=== PATIENT | male | born 1950 | race Caucasian/White ===

== ENCOUNTER 2023-09-19 14:00 | Outpatient (RCR) | payer MEDICARE, SELFPAY | END 2023-09-19 14:45 | disposition home or self-care (01) | LOC: HO.PTCHIC 14:00 | PROVIDERS: PCP Family Medicine; Visit Provider Nurse Practitioner Family | DX: M79.604 Pain in right leg (principal) | CPT/HCPCS: 97110; 97112; 97140; 97162; 97530 ==

== ENCOUNTER 2025-08-06 13:38 | Outpatient (AMB) | payer MEDICAID, SELFPAY ==
--- NOTE | 2025-08-06 13:41 | MHC.OFFWIV ---
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 - The patient recently visited an bar assistant and received new hearing aids. - The bar assistant noted the presence of ear wax, particularly in the right ear, which was not cleaned out during the visit. - He was told to come and have his ears cleaned. - He denies any pain, SEGOVIA, dizziness, or cold symptoms. Physical Exam General: Cooperative, healthy appearing, comfortable, no acute distress and well developed Head: Normal to inspection Ears: External ears normal bilaterally. No tragus or mastoid tenderness noted. Cerumen noted in the canal, more in the right ear and a little in the left ear. TM's not visualized. Face and sinus: Normal facial exam. No TTP of the sinuses. Neck: Normal visual inspection. Full ROM. No lymphadenopathy noted. Respiratory: Normal respiratory effort and able to speak in complete sentences. Clear to auscultation bilaterally. No w/r/r noted. Cardiac: RRR, no m/r/g noted. Normal S1 and S2 noted. Skin: No rashes or lesions noted Neuro: Patient oriented x3 Patient was informed and verbally consented to the use of an ambient scribe for clinic note documentation during this visit. Review of Systems Const All systems reviewed & are unremarkable except as noted in HPI and below Physical Exam Vital Signs: Last Vital Signs Temp 98.0 F 08/06/25 13:42 Pulse 67 08/06/25 13:42 Resp 16 08/06/25 13:42 BP 118/72 08/06/25 13:42 Pulse Ox 96 08/06/25 13:42 Oxygen Delivery Method Room Air 08/06/25 13:42 Office Procedures Cerumen Removal From which ear canal was the cerumen removed: bilateral Removal: irrigation and otoscope w/curette Notes: patient tolerated procedure well, no complications and ear canal clear [id number] Irrigation/Lavage Assessment & Plan Assessment & Plan (1) Impacted cerumen of both ears: Code(s): H61.23 - Impacted cerumen, bilateral Plan Most likely cerumen impaction Plan - The plan is to perform ear irrigation to remove the impacted cerumen Orders: Orders AMB Cerumen Removal Today H61.23 - Impacted cerumen, bilateral Coding Level of Care Code Est Pt Level 3 (96656) Diagnoses Impacted cerumen of both ears H61.23 CPT Codes Office Procedure - CPT: 00403-Upc Irrigation/Lavage ([id number])
[2025-08-06 13:42] VITALS: BP 118/72; PULSE 67; RESP 16; TEMP 36.7; O2SAT 96
--- OUTSIDE RECORDS SUMMARY | 2025-08-06 16:46 | XMS_ITS | Encounter Summary ---
Author Organization [facility] Address [address] [place] [address] Phone Care Team Providers Care Warehouse Freight Handler Name Role Phone Sandra Tee MD Unavailable [phone] Mehdi Sierra MD Primary Care Provider [phone] Eusebio Chase MD Primary Care Provider [phone] Eusebio Chase MD Primary Care Provider [phone] Eusebio Chase MD Unavailable [phone] Encounter Details Date Type Department Care Team (Latest Contact Info) Description 07/29/2022 Transcribe Orders Virtual Department [address] [place] [address] Karl Nava MD [address] [place] [address] [email or web address] History of Rush fundoplication (Primary Dx) Social History Tobacco Use Types Packs/Day Years Used Date Smoking Tobacco: Never Smokeless Tobacco: Never Alcohol Use Standard Drinks/Week Comments Yes 0 (1 standard drink = 0.6 oz pur e alcohol) rare 1 beer a month at most Sex and Gender Information Value Date Recorded Sex Assigned at Male 08/14/2019 12:02 PM EDT Legal Sex Male 10:05 PM EDT Gender Identity Male 08/14/2019 12:02 PM EDT Sexual Orientation Straight 08/14/2019 12 :02 PM EDT documented as of this encounter Plan of Treatment Not on file documented as of this encounter Results * FL UGI SERIES DOUBLE CONTRAST (08/11/2022 9:30 AM EDT) Anatomical Region Laterality Modality Abdomen Computed Radiogr aphy 08/11/2022 10:0 7 AM EDT Impressions 08/11/2022 10:13 AM EDT Small amount of reflux to the level of the mid esophagus. Presbyesophagus without evidence of significant delay in transit. There are post surgical changes related to prior fundoplication. Narrative 08/11/2022 10:13 AM EDT TECHNIQUE: AIR CONTRAST UPPER GI SERIES OPERATORS: Dr. Jaguar Johnson COMPARISON: FINDINGS: ESOPHAGUS: Motility: Presbyesophagus without evidence of significant delay in transit. Mucosa: Unremarkable. Distensibility: Normal. GASTROESOPHAGEAL JUNCTION: No evidence of hiatal hernia. There are post surgical changes related to prior fundoplication. GASTROESOPHAGEAL REFLUX: Small amount of reflux to the level of the mid esophagus. STOMACH: Normally distensible and demonstrates normal contours and mucosal pattern. DUODENUM: Bulb and sweep are normal. Duodenal-jejunal junction is in the normal expected position. Barium tablet Radiation Exposure: Fluoroscopy Time: 3 min 6 seconds, Dose: 139 mGy, Dose Area Product (DAP): 1876.03 , Number of Spot films: 42 Procedure Note Jaguar Johnson MD, ARIEL - 08/11/2022 TECHNIQUE: AIR CONTRAST UPPER GI SERIES OPERATORS: Dr. Jaguar Johnson COMPARISON: FINDINGS: ESOPHAGUS: Motility: Presbyesophagus without evidence of significant delay intransit. Mucosa: Unremarkable. Distensibility: Normal. GASTROESOPHAGEAL JUNCTION: No evidence of hiatal hernia. There are postsurgical changes related to prior fundoplication. GASTROESOPHAGEAL REFLUX: Small amount of reflux to the level of the midesophagus. STOMACH: Normally distensible and demonstrates normal contours andmucosal pattern. DUODENUM: Bulb and sweep are normal. Duodenal-jejunal junction is in thenormal expected position. Barium tablet Radiation Exposure: Fluoroscopy Time: 3 min 6 seconds, Dose: 139 mGy, Dose Area Product (DAP): 1876.03 , Number of Spot films: 42 IMPRESSION: Small amount of reflux to the level of the mid esophagus. Presbyesophagus without evidence of significant delay in transit. There are post surgical changes related to prior fundoplication. Karl Nava MD IM FL MISC Final Result documented in this encounter Visit Diagnoses Diagnosis History of Rush fundoplication- Primary History of Rush fundoplication documented in this encounter Additional Health Concerns Infection Onset Date Last Indicated Resolved Time CoV-Risk 12/13/2024 12/13/2024 12/24/2024 1:23 AM EST documented as of this encounter Care Teams Warehouse Freight Handler Relationship Specialty Start Date End Date Mehdi Sierra MD [address] [place] [address], [place] [address] [email or web address] PCP - General Family Medicine 06/08/18 07/18/23 Eusebio Chase MD [address] [place] [address] [email or web address] PCP - General Family Medicine 07/19/23 11/29/24 Eusebio Chase MD [address] [place] [address] [email or web address] PCP - General Family Medicine 11/30/24 Eusebio Chase MD [address] [place] [address] [email or web address] PCP - Hospice Attending 05/23/25 Sandra Tee MD [address] [place] [address] [email or web address] Historical LMR Provider 08/30/17 documented as of this encounter Additional Source Comments The information contained in this document represents components of the legal health record. It is not the complete legal health record.[facility]
--- OUTSIDE RECORDS SUMMARY | 2025-08-06 16:46 | XMS_ITS | Encounter Summary ---
Author Organization [facility] Address [address] [facility] [address] [place] [address] Phone Care Team Providers Care Cigarette Packer Name Role Phone Kartik Yanez MD Unavailable [phone] Bertram Baker MD Unavailable [phone] Sandra Tee MD Unavailable [phone] eMhdi Sierra MD Primary Care Provider [phone] Eusebio Chase MD Primary Care Provider Eusebio Chase MD Primary Care Provider [phone] Eusebio Chase MD Unavailable [phone] Encounter Details Date Type Department Care Team (Latest Contact Info) Description 12/20/2019 Transcribe Orders [facility] Laboratory [address] [place], [place] [id number] Yenifer Garcia PA-C [address] [place] [address] Rectal bleeding (Primary Dx) Social History Tobacco Use Types Packs/Day Years Used Date Smoking Tobacco: Never Smokeless Tobacco: Never Sex and Gender Information Value Date Recorded Sex Assigned at Male 08/14/2019 12:02 PM EDT Legal Sex Male 10:05 PM EDT Gender Identity Male 08/14/2019 12:02 PM EDT Sexual Orientation Straight 08/14/2019 12 :02 PM EDT documented as of this encounter Plan of Treatment Not on file documented as of this encounter Results * Ferritin (12/20/2019 10:19 AM EST) FERRITIN 93 30 - 400 ug/L [facility] Blood 12/20/2019 10:1 9 AM EST 12/20/2019 10:22 AM EST us Yenifer Garcia PA-C LAB BLOOD ORDERABLES Final Resu lt Performing Organization Address City/[facility]/ZIP Co de Phone Number [address] [address] * Iron and iron binding capacity (12/20/2019 10:19 AM EST) IRON 128 45 - 160 ug/dL [facility] IRON BINDING CAPACITY 286 228 - 428 ug/dL [facility] TRANSFERRIN SATURAT. 45 20 - 55 % [facility] Blood 12/20/2019 10:1 9 AM EST 12/20/2019 10:22 AM EST us Yenifer Garcia PA-C LAB BLOOD ORDERABLES Final Resu lt Performing Organization Address [facility] Co de Phone Number [address] [address] * C-Reactive Protein (12/20/2019 10:19 AM EST) C REACTIVE PROTEIN 0.6 0.0 - 4.0 mg/L [facility] Blood 12/20/2019 10:1 9 AM EST 12/20/2019 10:22 AM EST us Yenifer Garcia PA-C LAB BLOOD ORDERABLES Final Resu lt Performing Organization Address City/[facility] Co de Phone Number [address] [address] * Comprehensive metabolic panel (12/20/2019 10:19 AM EST) SODIUM 140 133 - 146 mmol/L [facility] POTASSIUM 4.1 3.3 - 5.1 mmol/L [facility] CHLORIDE 104 96 - 108 mmol/L [facility] CO2 23 21 - 35 mmol/L [facility] BUN 15 6 - 19 mg/dL [facility] CREATININE 0.90 0.5 - 1.5 mg/dL [facility] GLUCOSE 93 70 - 99 mg/dL [facility] ALBUMIN 4.3 3.9 - 4.8 g/dL [facility] TOTAL PROTEIN 7.0 6.5 - 8.0 g/dL [facility] CALCIUM 9.0 8.4 - 10.3 mg/dL [facility] ALKALINE PHOSPHATASE 78 39 - 117 U/L [facility] TOTAL BILIRUBIN 0.7 0.0 - 1.2 mg/dL [facility] AST 20 0 - 37 U/L [facility] ALT 15 0 - 40 U/L [facility] GLOBULIN 2.7 1 - 4.8 g/dL [facility] EGFR 86 >59 mL/min/1.7 3m2 [facility] Comment:If patient is black, multiply result by 1.159. Estimated glomerular filtration rate calculated using the CKD-EPI equation. ANION GAP 17 10 - 20 mmol/L [facility] Blood 12/20/2019 10:1 9 AM EST 12/20/2019 10:22 AM EST Yenifer Garcia PA-C LAB BLOOD ORDERABLES Final Resu lt [address] [address] * CBC (12/20/2019 10:19 AM EST) WBC 9.43 4.00 - 11.00 K/uL [facility] Comment:Note Reference Range updates to all CBC and Differential results. RBC 4.47 3.90 - 5.69 M/uL [facility] HGB 14.6 12.4 - 17.3 g/dL [facility] Comment:Note updated Referen ce Ranges for all CBC and Differential results. HCT 43.1 37.0 - 51.0 % [facility] PLT 267 140 - 430 K/uL [facility] MCV 96.4 78.0 - 97.0 fL [facility] MCH 32.7 25.0 - 33.0 pg [facility] MCHC 33.9 32.0 - 36.0 g/dL [facility] RDW 13.3 11.0 - 15.0 % [facility] MPV 8.9 8.4 - 12.8 [facility] NRBC 0.00 0 /100 WBCs [facility] ABSOLUTE NRBC 0.00 0 K/uL [facility] Blood 12/20/2019 10:1 9 AM EST 12/20/2019 10:22 AM EST us Yenifer Garcia PA-C LAB BLOOD ORDERABLES Final Resu lt [facility] [address] [place] [address] documented in this encounter Visit Diagnoses Diagnosis Rectal bleeding- Primary Hemorrhage of rectum and anus documented in this encounter Additional Health Concerns Infection Onset Date Last Indicated Resolved Time CoV-Risk 12/13/2024 12/13/2024 12/24/2024 1:23 AM EST documented as of this encounter Care Teams Cigarette Packer Relationship Specialty Start Date End Date Mehdi Sierra MD [address] [place] [address] Orthopedics Sports [facility], [place] [address] [email or web address] PCP - General Family Medicine 06/08/18 07/18/23 Eusebio Chase MD [address] [place] [address] Orthopedics Sports [facility], [place] [address] [email or web address] PCP - General Family Medicine 07/19/23 11/29/24 Eusebio Chase MD [address] [place] [address] [email or web address] PCP - General Family Medicine 11/30/24 Eusebio Chase MD [address] [place] [address] [email or web address] PCP - Hospice Attending 05/23/25 Kartik Yanez MD [address] [facility], 2nd [place] [address] Historical LMR Provider 08/30/17 11/21/21 Bertram Baker MD [address] [place] [address] Historical LMR Provider 08/30/17 2 Sandra Tee MD [address] [place] [address] Orthopedics & Sports Medicine, [facility] [place] [address] Historical LMR Provider 08/30/17 documented as of this encounter Additional Source Comments The information contained in this document represents components of the legal health record. It is not the complete legal health record.[facility]
--- OUTSIDE RECORDS SUMMARY | 2025-08-06 16:46 | XMS_ITS | Encounter Summary ---
Author Organization [facility] Address [address] [place] [address] Phone Care Team Providers Care Plant Protection Guard Name Role Phone Sandra Tee MD Unavailable [phone] Mehdi Sierra MD Primary Care Provider [phone] Eusebio Chase MD Primary Care Provider [phone] Eusebio Chase MD Primary Care Provider [phone] Eusebio Chase MD Unavailable [phone] Encounter Details Date Type Department Care Team (Late st Contact Info) Description 02/24/2022 Procedure Pass [place] Admitting Dept - Virtual Department [address] [place] [address] Social History Tobacco Use Types Packs/Day Years [...] PM EDT documented as of this encounter Functional Status * Calculated C-SSRS Risk Score (Lifetime/Recent) Answer Date of Assessment Author No Risk Indicated 02/24/2022 8:12 PM EDT Jemima Winters, JOSÉ MIGUEL * [place] Suicide Severity Rating Scale (Screener/Recent Self-Report) Question Answer Date of Assessment Author 1. Wish to be (Past 1 Month) No 022 8:12 PM EDT Jemima Winters, JOSÉ MIGUEL 2. Non-Specific Active Suici soha Thoughts (Past 1 Month) No 02/24/2022 8:12 PM EDT Anita Winters, JOSÉ MIGUEL 6. Suicidal Behavior (Lifetime) No 8:12 PM EDT Jemima Winters, JOSÉ MIGUEL documented as of this encounter Plan of Treatment Not on file documented as of this encounter Visit Diagnoses Not on filedocumented in this encounter Additional Health Concerns Infection Onset Date Last Indicated Resolved Time CoV-Risk 12/13/2024 12/13/2024 12/24/2024 1:23 AM EST documented as of this encounter Care Teams Plant Protection Guard Relationship Specialty Start Date End Date Mehdi Sierra MD [address] [place] [address], [place] [address] [email or web address] PCP - General Family Medicine 06/08/18 07/18/23 Eusebio Chase MD [address] [place] [address] [email or web address] PCP - General Family Medicine 07/19/23 11/29/24 Eusebio Chase MD [address] [place] [address] [email or web address] PCP - General Family Medicine 11/30/24 Eusebio Chase MD [address] [place] [address] [email or web address] PCP - Hospice Attending 05/23/25 Sandra Tee MD [address] [place] [address], [place] [address] [email or web address] Historical LMR Provider 08/30/17 documented as of this encounter Additional Source Comments The information contained in this document represents components of the legal health record. It is not the complete legal health record.[facility]
--- OUTSIDE RECORDS SUMMARY | 2025-08-06 16:46 | XMS_ITS | Encounter Summary ---
Author Organization [facility] Address [address] [place] [address] Phone Care Team Providers Care Head Cook Name Role Phone Sandra Tee MD Unavailable [phone] Mehdi Sierra MD Primary Care Provider [phone] Eusebio Chase MD Primary Care Provider [phone] Eusebio Chase MD Primary Care Provider [phone] Eusebio Chase MD Unavailable [phone] Encounter Details Date Type Department Care Team (Late st Contact Info) Description 08/16/2022 Procedure Pass [facility] Endoscopy Admitting Dept Virtual Department [address] [place] [address] Social History Tobacco Use Types Packs/Day Years [...] documented as of this encounter Care Teams Head Cook Relationship Specialty Start Date End Date Mehdi Sierra MD [address] [place] [address] Orthopedics Sports [facility], [place] [address] [email or web address] PCP - General Family Medicine 06/08/18 07/18/23 Eusebio Chase MD [address] [place] [address] [place] [address] [email or web address] PCP - General Family Medicine 07/19/23 11/29/24 Eusebio Chase MD [address] [place] [address] [email or web address] PCP - General Family Medicine 11/30/24 Eusebio Chase MD [address] [place] [address] [email or web address] PCP - Hospice Attending 05/23/25 Sandra Tee MD [address] [place] [address] [email or web address] Historical LMR Provider 08/30/17 documented as of this encounter Additional Source Comments The information contained in this document represents components of the legal health record. It is not the complete legal health record.[facility]
--- OUTSIDE RECORDS SUMMARY | 2025-08-06 16:46 | XMS_ITS | Encounter Summary ---
Author Organization [facility] Address [address] [place] [address] Phone Care Team Providers Care Dipper Machine Operator Name Role Phone Sandra Tee MD Unavailable [phone] Mehdi Sierra MD Primary Care Provider [phone] Eusebio Chase MD Primary Care Provider [phone] Eusebio Chase MD Primary Care Provider [phone] Eusebio Chase MD Unavailable [phone] Encounter Details Date Type Department Care Team (Late st Contact Info) Description 02/24/2022 Procedure Pass [place] Admitting Dept - Virtual Department [address] [place] [address] Social History Tobacco Use Types Packs/Day Years [...] PM EDT Jemima Winters, JOSÉ MIGUEL * [place] Suicide Severity Rating Scale (Screener/Recent Self-Report) Question [...] documented as of this encounter Care Teams Dipper Machine Operator Relationship Specialty Start Date End Date Mehdi Sierra MD [address] [place] [address], [place] [address] [email or web address] PCP - General Family Medicine 06/08/18 07/18/23 Eusebio Chase MD [address] [place] [address] [email or web address] PCP - General Family Medicine 07/19/23 11/29/24 Eusebio Chase MD [address] [place] [address] [email or web address] PCP - General Family Medicine 11/30/24 Eusebio Chase MD [address] [place] [address] [email or web address] PCP - Hospice Attending 05/23/25 Sandra Tee MD [address] [place] [address], [place] [address] [email or web address] Historical LMR Provider 08/30/17 documented as of this encounter Additional Source Comments The information contained in this document represents components of the legal health record. It is not the complete legal health record.[facility]
--- OUTSIDE RECORDS SUMMARY | 2025-08-06 16:47 | XMS_ITS | Encounter Summary ---
Author Organization [facility] Address [address] [place] [address] Phone Care Team Providers Care Personnel Administrator Name Role Phone Sandra Tee MD Unavailable [phone] Eusebio Chase MD Primary Care Provider [phone] Eusebio Chase MD Unavailable [phone] Encounter Details Date Type Department Care Team (Late st Contact Info) Description 05/18/2025 Ophth Exam [facility] [address] [facility] 12th [place] [address] Kang Merlos MD [address] [place] [address] [email or web address] Social History Tobacco Use Types Packs/Day Years Used Date Smoking Tobacco: Never Smokeless Tobacco: Never Alcohol Use Standard Drinks/Week Comments Never 0 (1 standard drink = 0.6 oz pur e alcohol) Education Answer Date Recorded Are you interested in more education? Not on angela e 03/11/2023 Are you concerned about learning? Not on file 03/11/2023 No 03/11/2023 No 03/11/2023 Digital Access Answer Date Recorded No 04/11/2023 No 04/11/2023 Reliable internet access at home? Not on file 04/11/2023 Device with a working camera? Not on file Intimate Partner Violence Answer Date R ecorded Are you denied basic needs s uch as food, clothing, or medical care? No 05/18/2025 In the past 12 months have y ou been in a relationship with a person who hurts, threatens, or tries to control you? No 05/18/2025 Are you denied basic needs s uch as food, clothing, or medical care? No 05/18/2025 In the past 12 months have y ou been in a relationship with a person who hurts, threatens, or tries to control you? No 05/18/2025 Sex and Gender Information Value Date Recorded Sex Assigned at Male 08/14/2019 12:02 PM EDT Legal Sex Male 10:05 PM EDT Gender Identity Male 08/14/2019 12:02 PM EDT Sexual Orientation Straight 08/14/2019 12 :02 PM EDT documented as of this encounter Functional Status * Calculated C-SSRS Risk Score (Lifetime/Recent) Answer Date of Assessment Author No Risk Indicated 05/18/2025 7:00 AM EDT Leslie Gabriel RN * [place] Suicide Severity Rating Scale (Screener/Recent Self-Report) Question Answer Date of Assessment Author 1. Wish to be (Past 1 Month) No 05/18/2025 7:00 AM EDT Nishant Ghosh RN 2. Non-Specific Active Suici soha Thoughts (Past 1 Month) No 05/18/2025 7:00 AM EDT Mary Ghosh RN 6. Suicidal Behavior (Lifetime) No 7:00 AM EDT Leslie Ghosh RN documented as of this encounter Plan of Treatment Not on file documented as of this encounter Visit Diagnoses Not on filedocumented in this encounter Care Teams Personnel Administrator Relationship Specialty Start Date End Date Eusebio Chase MD [address] [place] [address] PCP - General Family Medicine 11/30/24 Eusebio Chase MD [address] [place] [address] PCP - Hospice Attending 05/23/25 Sandra Tee MD [address] [place] [address] Orthopedics & Sports Medicine, [place] [address] [email or web address] Historical LMR Provider 08/30/17 documented as of this encounter Additional Source Comments The information contained in this document represents components of the legal health record. It is not the complete legal health record.[facility]
--- OUTSIDE RECORDS SUMMARY | 2025-08-06 16:47 | XMS_ITS | Encounter Summary ---
Author Organization [facility] Address [address] [place] [address] Phone Care Team Providers Care Seasonal Warehouse Associate Name Role Phone Sandra Tee MD Unavailable [phone] Eusebio Chase MD Primary Care Provider [phone] Eusebio Chase MD Unavailable [phone] Encounter Details Date Type Department Care Team (Late st Contact Info) Description 05/17/2025 [place] [facility] [place] [facility] [place] [address] [place] [address], Floor 1 [place] [address] Social History Tobacco Use Types Packs/Day Years [...] 7:00 AM EDT Leslie Gabriel RN * [place] Suicide Severity Rating Scale (Screener/Recent Self-Report) Question [...] on filedocumented in this encounter Care Teams Seasonal Warehouse Associate Relationship Specialty Start Date End Date Eusebio Chase MD [address] [place] [address] PCP - General Family Medicine 11/30/24 Eusebio Chase MD [address] [place] [address] PCP - Hospice Attending 05/23/25 Sandra Tee MD [address] [place] [address] Orthopedics & Sports Medicine, [facility] [place] [address] Historical LMR Provider 08/30/17 documented as of this encounter Additional Source Comments The information contained in this document represents components of the legal health record. It is not the complete legal health record.[facility]
--- OUTSIDE RECORDS SUMMARY | 2025-08-06 16:47 | XMS_ITS | Encounter Summary ---
Author Organization [facility] Address [address] [place] [address] Phone Care Team Providers Care Automotive Shop Foreman Name Role Phone Kartik Yanez MD Unavailable [phone] Bertram Baker MD Unavailable [phone] Sandra Tee MD Unavailable [phone] Mehdi Sierra MD Primary Care Provider [phone] Eusebio Chase MD Primary Care Provider [phone] Eusebio Chase MD Primary Care Provider [phone] Eusebio Chase MD Unavailable [phone] Encounter Details Date Type Department Care Team (Late st Contact Info) Description 04/20/2019 Prep for Surgery [facility] Orthopedics & Sports Medicine [address] [place] [address] Sandra Tee MD [address] [place] [address] Orthopedics & Sports Medicine, [facility]. [place], [place] [id number] Social History Tobacco Use Types Packs/Day Years [...] documented as of this encounter Care Teams Automotive Shop Foreman Relationship Specialty Start Date End Date Mehdi Sierra MD [address] [place] [address] Orthopedics Sports [facility], [place] [address] [email or web address] PCP - General Family Medicine 06/08/18 07/18/23 Eusebio Chase MD [address] [place] [address] Orthopedics Sports [facility], [place] [address] [email or web address] PCP - General Family Medicine 07/19/23 11/29/24 Eusebio Chase MD [address] [place] [address] [email or web address] PCP - General Family Medicine 11/30/24 Eusebio Chase MD [address] [place] [address] [email or web address] PCP - Hospice Attending 05/23/25 Kartik Yanez MD [address] [place] [address], 2nd [place] [address] Historical LMR Provider 08/30/17 11/21/21 Bertram Baker MD [address] [place] [address] [email or web address] Historical LMR Provider 08/30/17 2 Sandra Tee MD [facility] Orthopedics & Sports Medicine, [facility] [place] [address] [email or web address] Historical LMR Provider 08/30/17 documented as of this encounter Additional Source Comments The information contained in this document represents components of the legal health record. It is not the complete legal health record.[facility]
--- OUTSIDE RECORDS SUMMARY | 2025-08-06 16:47 | XMS_ITS | Encounter Summary ---
Author Organization [facility] Address [address] [place] [address] Phone Care Team Providers Care Field Handyman Name Role Phone Sandra Tee MD Unavailable [phone] Eusebio Chase MD Primary Care Provider [phone] Eusebio Chase MD Unavailable [phone] Encounter Details Date Type Department Care Team (Late st Contact Info) Description 05/18/2025 Procedure Pass [facility] [place] [facility] [place] [address] [facility], 2nd Floor, [address] [place] [address] Social History Tobacco Use Types Packs/Day Years [...] 7:00 AM EDT Leslie Gabriel RN * [place] Suicide Severity Rating Scale (Screener/Recent Self-Report) Question [...] on filedocumented in this encounter Care Teams Field Handyman Relationship Specialty Start Date End Date Eusebio Chase MD [address] [place] [address] PCP - General Family Medicine 11/30/24 Eusebio Chase MD [address] [place] [address] PCP - Hospice Attending 05/23/25 Sandra Tee MD [address] [place] [address] Orthopedics & Sports Medicine, [facility] [place] [address] Historical LMR Provider 08/30/17 documented as of this encounter Additional Source Comments The information contained in this document represents components of the legal health record. It is not the complete legal health record.[facility]
--- OUTSIDE RECORDS SUMMARY | 2025-08-06 16:47 | XMS_ITS | Encounter Summary ---
Author Organization [facility] Address [address] [place] [address] Phone Care Team Providers Care Outsoles Channel Opener Name Role Phone Kartik Yanez MD Unavailable [phone] Bertram Baker MD Unavailable [phone] Sandra Tee MD Unavailable [phone] Mehdi Sierra MD Primary Care Provider [phone] Eusebio Chase MD Primary Care Provider [phone] Eusebio Chase MD Primary Care Provider [phone] Eusebio Chase MD Unavailable [phone] Reason for Referral * Occupational Therapy (Elective) - Closed Specialty Diagnoses / Procedures Referred By Contyaneth t Referred To Contact Occupational Therapy Diagnoses Encounter for rehabilitation Bi-Lateral Hand Pain Procedures Evaluate & Treat Mehdi Sierra MD Phone: tel: fax: [email or web address] [address] [address] Phone: tel: Referral ID Status Reason Start Date Expiration Date Visits Re quested Visits Authorized [id number] Closed 05/01/2019 11/13/2019 99 99 Encounter Details Date Type Department Care Team (Latest Contact Info) Description 05/01/2019 Transcribe Orders [facility] Rehabilitation [facility] [address] [place] [address] Mehdi Sierra MD [address] [place] [address] [email or web address] Encounter for rehabilitation (Primary Dx) Social History Tobacco Use Types [...] on file documented as of this encounter Procedures Procedure Name Priority Date/Time Associated Diagnosis Comments AMB REFERRAL TO [facility] OCCUPATIONAL THERAPY Routine 05/08/2019 12:14 PM EDT Encounter for rehabilitation documented in this encounter Results * Ambulatory referral to [facility] Occupational Therapy (05/08/2019 12:14 PM EDT) Mehdi Sierra MD AMB [facility] REFERRALS Final Result documented in this encounter Visit Diagnoses Diagnosis Encounter for rehabilitation- Primary documented in this encounter Additional Health Concerns Infection Onset Date Last Indicated Resolved Time CoV-Risk 12/13/2024 12/13/2024 12/24/2024 1:23 AM EST documented as of this encounter Care Teams Outsoles Channel Opener Relationship Specialty Start Date End Date Mehdi Sierra MD [address] [place] [address] Orthopedics Sports [facility], [place] [address] PCP - General Family Medicine 06/08/18 07/18/23 Eusebio Chase MD [address] [place] [address] Orthopedics & Sports [facility], [place] [address] PCP - General Family Medicine 07/19/23 11/29/24 Eusebio Chase MD [address] [place] [address] PCP - General Family Medicine 11/30/24 Eusebio Chase MD [address] [place] [address] PCP - Hospice Attending 05/23/25 Kartik Yanez MD [address] [address] Historical LMR Provider 08/30/17 11/21/21 Bertram Baker MD [address] [place] [address] Historical LMR Provider 08/30/17 2 Sandra Tee MD [address] [place] [address] Orthopedics & Sports Medicine, [facility] [place] [address] Historical LMR Provider 08/30/17 documented as of this encounter Additional Source Comments The information contained in this document represents components of the legal health record. It is not the complete legal health record.[facility]
--- OUTSIDE RECORDS SUMMARY | 2025-08-06 16:47 | XMS_ITS | Encounter Summary ---
Author Organization [facility] Address [address] [place] [address] Phone Care Team Providers Care Track Maintainer Name Role Phone Sandra Tee MD Unavailable [phone] Eusebio Chase MD Primary Care Provider [phone] Eusbeio Chase MD Unavailable [phone] Encounter Details Date Type Department Care Team (Late st Contact Info) Description 05/19/2025 Ophth Exam [facility] [address] 12th [place] [address] Kang Merlos MD [address] [place] [address] [email or web address] Social History Tobacco Use Types [...] on filedocumented in this encounter Care Teams Track Maintainer Relationship Specialty Start Date End Date Eusebio Chase MD [address] [place] [address] PCP - General Family Medicine 11/30/24 Eusebio Chase MD [address] [place] [address] PCP - Hospice Attending 05/23/25 Sandra Tee MD [address] [place] [address] Orthopedics & Sports Medicine, [facility] [place] [address] Historical LMR Provider 08/30/17 documented as of this encounter Additional Source Comments The information contained in this document represents components of the legal health record. It is not the complete legal health record.[facility]
--- OUTSIDE RECORDS SUMMARY | 2025-08-06 16:47 | XMS_ITS | Encounter Summary ---
Author Organization [facility] Address [address] [place] [address] Phone Care Team Providers Care Activities Therapist Name Role Phone Sandra Tee MD Unavailable Eusebio Chase MD Primary Care Provider [phone] Eusebio Chase MD Unavailable [phone] Encounter Details Date Type Department Care Team (Late st Contact Info) Description 05/16/2025 Procedure Pass [facility] [place] Emergency Radiology, Main [place] [address] [place] [address], Floor 1 [place] [address] Social History Tobacco Use Types Packs/Day Years [...] 7:00 AM EDT Leslie Gabriel RN * [place] Suicide Severity Rating Scale (Screener/Recent Self-Report) Question [...] on filedocumented in this encounter Care Teams Activities Therapist Relationship Specialty Start Date End Date Eusebio Chase MD [address] [place] [address] PCP - General Family Medicine 11/30/24 Eusebio Chase MD [address] [place] [address] PCP - Hospice Attending 05/23/25 Sandra Tee MD [address] [place] [address] Orthopedics & Sports Medicine, [facility] [place] [address] Historical LMR Provider 08/30/17 documented as of this encounter Additional Source Comments The information contained in this document represents components of the legal health record. It is not the complete legal health record.[facility]
--- OUTSIDE RECORDS SUMMARY | 2025-08-06 16:47 | XMS_ITS | Clinical Summary ---
Author Organization [facility] Address [address] [facility] [address] [place] [address] Phone Care Team Providers Care [employer] [place] [employer] Judge Name Role Phone Sandra Tee MD Unavailable [phone] Eusebio Chase MD Primary Care Provider [phone] Eusebio Chase MD Unavailable [phone] Allergies Active Allergy Reactions Criticality Noted Date Comments Penicillins Hives Medium 07/15/2020 Sulfa (Sulfonamide Antibiotics) Hives Medium 06/14 Tree Nuts Anaphylaxis High 07/15/2020 Medications sertraline (ZOLOFT) 100 MG tablet Take 100 mg by mouth daily. 8 Active gabapentin (NEURONTIN) 100 MG capsule Take 100 mg by mouth 2 (two) times a day. Active hydrALAZINE (APRESOLINE) 10 MG tablet 10 mg 2 (two) times a day. 5 Active lisinopril (PRINIVIL,ZESTRIL) 40 MG tablet Take 40 mg by mouth daily. 5 Active melatonin 3 mg Tab Take 6 mg by mouth. 5 Active tamsulosin (FLOMAX) 0.4 mg Cap TAKE 1 CAPSULE BY MOUTH EVERY DAY FOR 14 DAYS 5 Active traZODone (DESYREL) 50 MG tablet Take 50 mg by mouth. 5 Active amLODIPine (NORVASC) 5 MG tablet Take 5 mg by mouth daily. Active dextran 70-rgmwnovyolxo-gy ycern (ARTIFICIAL TEARS) 0.1-0.3-0.2 % Place 1-2 drops into the left eye every hour as needed for other (free text field) (eye pain). 12 mL 5 Active dorzolamide-timolo l, PF, (COSOPT PF) 2-0.5 % Dpet Place 1 drop into the left eye 2 (two) times a day. 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 30 mL 5 Active cyclopentolate (CYCLOGYL) 1 % ophthalmic solution Place 1 drop into the left eye 2 (two) times a day for 120 doses. 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 Given progression of ARN despite PO valtrex and prednisolone eye drops (started 05/12), pt was evaluated at [facility] on 05/16. Underwent anterior chamber tap and intravitreal foscarnet injection OS. Regarding mental status change, suspect pt does have some underlying cognitive impairment which may cloud mental status assessment and the addition of vision deficit in addition to baseline hearing deficit could further contribute to acute confusion. Nonetheless, he is currently A&Ox1 which in discussion with HCP Anastasiia is off of baseline (A&Ox3). Will plan to assess for DUSTER TENDER involvement (no neck pain on flexion or rotation) and broaden infectious w/u with ID's input. Given this is second episode of severe HSV infection, raises c/f underyling immunosuppression. It if plausible that patient was immunocompromised in 11/2024 iso colon cancer when he was diagnosed with HSV encephalitis. Pt is now s/p colon cancer resection and was told he does not have mets/needs chemotherapy. Will thus assess HIV, immunoglobulins. Presence of substantive leukocytosis raises possibility of lymphoproliferative process contributing to immunocompromised status. 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 Given progression of ARN despite PO valtrex and prednisolone eye drops (started 05/12), pt was evaluated at [facility] on 05/16. Underwent anterior chamber tap and intravitreal foscarnet injection OS. Regarding mental status change, suspect pt does have some underlying cognitive impairment which may cloud mental status assessment and the addition of vision deficit in addition to baseline hearing deficit could further contribute to acute confusion. Nonetheless, he is currently A&Ox1 which in discussion with HCP Anastasiia is off of baseline (A&Ox3). Will plan to assess for DUSTER TENDER involvement (no neck pain on flexion or rotation) and broaden infectious w/u with ID's input. Given this is second episode of severe HSV infection, raises c/f underyling immunosuppression. It if plausible that patient was immunocompromised in 11/2024 iso colon cancer when he was diagnosed with HSV encephalitis. Pt is now s/p colon cancer resection and was told he does not have mets/needs chemotherapy. Will thus assess HIV, immunoglobulins. Presence of substantive leukocytosis raises possibility of lymphoproliferative process contributing to immunocompromised status. 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 - F/u ID recs - C/s Retina in the AM - Continue IV acyclovir with hydration - Continue eyedrops: - prednisolone 6x/day left eye, cyclopentolate 4x/day left eye, moxifloxacin 4x/day left eye - F/u blood cultures and eye viral panel - Plan for LP in the AM pending ID recs (obtain PT-INR, T&S) - Send syphilis (per Optho recs), HIV, immunoglobulin panel - Will request [facility] records - Start contact precautions (confirmed with IC) Leukocytosis 05/17/2025 Assessment & Plan (05/18/2025 4:18 PM EDT): Robust leukocytosis (30) this admission with elevated lymphocyte and monocytes. WBC was also elevated during 11/2024 check (20). Other than vision loss, patient is not reporting any localizing s/s. Blood cultures in progress. Will also obtain, UA and CXR. Additionally will send special slide and consider Heme w/u pending course. - F/u blood cultures - UA w/ reflex, urine culture - Special slide - Trend WBC - f/u heme recs Assessment & Plan (05/17/2025 4:40 PM EDT): Robust leukocytosis (30) this admission with elevated lymphocyte and monocytes. WBC was also elevated during 11/2024 check (20). Other than vision loss, patient is not reporting any localizing s/s. Blood cultures in progress. Will also obtain, UA and CXR. Additionally will send special slide and consider Heme w/u pending course. - F/u blood cultures - UA w/ reflex, urine culture - Special slide - Trend WBC, and consider Heme input pending course Chronic health problem 05/17/2025 Assessment & Plan (05/18/2025 4:18 PM EDT): # Colon cancer Cecal mass seen incidentally in 11/2024, patient subsequently underwent cecal resection in 03/2025 at [facility] for colon cancer. Not on chemotherapy, was told he does not have metastatic disease per HCP. - [facility] records requested # HTN Continue home amlodipine 5mg, lisinopril 40mg, hydral 10mg BID # PAML Med list confirmed with pt and HCP/partner but discrepancies seen in dosing when comparing dispense history. - Need to confirm med list with SNF ([facility]): Assessment & Plan (05/17/2025 4:45 PM EDT): # Colon cancer Cecal mass seen incidentally in 11/2024, patient subsequently underwent cecal resection in 03/2025 at [facility] for colon cancer. Not on chemotherapy, was told he does not have metastatic disease per HCP. - [facility] records requested # HTN Continue home amlodipine 5mg, lisinopril 40mg, hydral 10mg BID # PAML Med list confirmed with pt and HCP/partner but discrepancies seen in dosing when comparing dispense history. - Need to confirm med list with SNF ([facility]): Goals of care, counseling/discussion 05/17/2025 Assessment & Plan (05/18/2025 4:18 PM EDT): Confirmed DNR/DNI on admission, just let me go if it comes to that, I'm 74 . Patient very clear on not wanting resuscitation or intubation. - File MOLST #Capacity concerns Concern for decision making capacity at this time. Pt with evident forgetfulness and word finding difficulty which appears to be different from patient's baseline per prior conversations with HCP. Lack of understanding of current medical condition. -- For medical procedures requiring consent, would reach out to HCP -- If pt expressing desire to leave AMA, would re-evaluate for capacity and consider psych c/s. As of this morning, pt did not appear to have decision making capacity. Assessment & Plan (05/17/2025 4:45 PM EDT): Confirmed DNR/DNI on admission, just let me go if it comes to that, I'm 74 . Patient very clear on not wanting resuscitation or intubation. - File MOLST Herpetic encephalitis 05/16/2025 Trigger finger, left ring finger 10/19/2023 Encounter for preoperative s creening laboratory testing for COVID-19 virus 02/24/2022 Umbilical hernia 12/11/2019 Assessment & Plan (12/11/2019 1:30 PM EST): The patient has an umbilical hernia on exam today. He would like to have this repaired. He is headed to GI for evaluation of bright red blood per rectum and I would recommend he have a colonoscopy prior to the hernia repair. Plan will be for umbilical hernia repair, open repair with mesh implantation. I had a conversation with the patient today regarding the nature of hernias and options for repair. The risks and benefits of hernia repair including but not limited to the risks of infection, bleeding, chronic pain, recurrence, and infection of the mesh have been explained to the patient. The patient understands and wishes to proceed. He also understands that this repair is not a cosmetic procedure and that he could be left with a lump, bulge, and/or skin changes at the repair site. He understands the signs and symptoms of hernia strangulation and will seek immediate medical attention should a pinching feeling or severe pain in the area of the hernia, fever, chills, nausea, and/or vomiting develop. HTN (hypertension) Gastroesophageal reflux disease Encounters Date Type Department Care Team Description 07/23/2025 Home Care Visit [facility] [address] [place] [address] Suzi Washington RN CASE COMMUNICATION 07/02/2025 Home Care Visit [facility] [address] [place] [phone] Suzi Washington RN CASE COMMUNICATION 07/01/2025 Home Care Visit [facility] [address] [place] [address] Suzi Washington RN CASE COMMUNICATION 06/12/2025 Home Care Visit [facility] [address] [place] [phone] Suzi Washington RN CASE COMMUNICATION 06/11/2025 Home Care Visit [facility] [address] [place] [phone] Suzi Washington RN CASE COMMUNICATION 06/05/2025 Home Care Visit [facility] [address] [place] [address] Suzi Washington, RN CASE COMMUNICATION 05/30/2025 Telephone [facility] MEDICINE VIRTUAL DEPARTMENT [address] [place] [phone] Shivam Merino MD Post Discharge Follow Up Call 05/24/2025 Orders Only [facility] MEDICINE VIRTUAL DEPARTMENT [address] [place] [phone] Kevin Belcher MD 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 (Primary Dx) 05/23/2025 Hospice Admission [facility] [address] [place] [address] Suzanne Gonzalez RN 05/23/2025 Home Care Visit [facility] [address] [place] [address] Suzi Washington RN CASE COMMUNICATION 05/23/2025 Episode Documentation Update [facility] [address] [place] [address] Chhaya Irwin 05/23/2025 Orders Only [facility] [address] [place] [address] Homehealth, Ludwig Melendez MD 05/21/2025 2:15 PM EDT Office Visit [address] [address] Elvis Camarena MD Chen, Jimmy, MD Acute retinal necrosis of left eye (Primary Dx) 05/20/2025 12:30 PM EDT Office Visit [address] [address] Elvis Camarena MD Acute retinal necrosis, left (Primary Dx) 05/20/2025 Orders Only [facility] [address] [facility], 9th Floor, [address] [place] [address] Baylee Call MD Lymphocytosis (Primary Dx) 05/19/2025 Ophth Exam [address] [address] Kang Merlos MD 05/18/2025 10:00 AM EDT Ancillary Procedure [facility] Imaging Bedside Ultrasound VRT [address] [place] [address] Raymundo Haynes MD 05/18/2025 Ophth Exam [facility] [address] [address] Kang Merlos MD 05/18/2025 Procedure Pass [facility] CT, Elie [address] [facility], 2nd Floor, [address] [place] [address] 05/18/2025 Procedure Pass [facility] CT, Elie [address] [facility], 2nd Floor, [address] [place] [address] 05/17/2025 Ophth Exam [facility] [address] [address] Kang Merlos MD 05/17/2025 Procedure Pass [facility] Emergency Radiology, [facility] [address] [facility] 1 [place] [address] 05/16/2025 10:04 PM EDT - 05/23/2025 3:43 PM EDT Hospital Encounter [facility] [place] [address] [place] [phone] Jennifer Ramirez MD Raja, Ali S, MD, MPH Lluvia Marley MD Hernandez Heyne, Nancy M, MD Nagarur, Amulya, MD Wing, Jonathan R, MD Kosovsky, MD Wilber Barillas, Shivam Gallardo MD Discharge Disposition: Care Home Facility 05/16/2025 3:45 PM EDT - 05/16/2025 8:19 PM EDT Emergency [facility] [address] [place] [address] Discharge Disposition: Another Health Care Institution Not Defined 05/16/2025 Procedure Pass [facility] Emergency Radiology, [facility] [address] [facility], [facility] 1 [place] [address] 05/16/2025 After Hours Office Visit [facility] [address] [address] Kang Merlos MD Acute retinal necrosis, left (Primary Dx) 05/16/2025 Ophth Exam [facility] [address] [place] [address] Soledad Vyas MD from Last 3 Months Immunizations Immunization Administration Dates Next Due COVID-19 (Pre-09/05) [employer] Vaccine, [id number], P F 01/24/2021 INFLUENZA, SPLIT VIRUS, TRIVALENT W/ PRESERVATIV E IM 07/02/2011,08/09/2010 Influenza High-Dose Trivalent Preservative Free IM 07/15/2019 Influenza Quadrivalent Adjuvanted Preservative F ree IM 08/16/2020 Influenza Trivalent Adjuvanted Preservative free IM 08/01/2019 Influenza trivalent preservative free intraderma l 08/02/2012 Influenza, Unspecified Formulation 08/30/2007 Pneumococcal polysaccharide PPSV23 07/02/2011 Td (adult),2 Lf Tetanus Toxoid, PF, Adsorbed Tdap 09/11/2008 Zoster live 08/14/2009 Zoster recombinant 10/17/2020,08/16/2020 Family History Medical History Relation Comments Diabetes Brother Brain cancer Father Stroke Mother Relation Status Comments Brother Father Mother Social History Tobacco Use Types Packs/Day Years Used Date Smoking Tobacco: Never Smokeless Tobacco: Never Tobacco Cessation:Counseling Given: Not Answered Alcohol Use Standard Drinks/Week Comments Never 0 [...] Orientation Straight 08/14/2019 12 :02 PM EDT Last Filed Vital Signs Vital Sign Reading Time Taken Comments Blood Pressure 175/81 05/23/2025 9:34 AM EDT Pulse 70 05/23/2025 9:34 AM EDT Temperature 36.4 C (97.5 F) 05/23/2025 9:34 AM EDT Respiratory Rate 16 05/23/2025 12:3 0 AM EDT Oxygen Saturation 99% 05/23/2025 9:3 4 AM EDT Inhaled Oxygen Concentration - - Weight 81.1 kg (178 lb 12.7 oz) 05/18/2025 4:24 PM EDT with shoes and clothes Height 172.7 cm (5' 8 ) 05/18/2025 4:24 PM EDT Body Mass Index 27.19 05/18/2025 4:24 PM EDT Plan of Treatment Health Maintenance Due Date Last Done Comments LIPID PANEL 1948 DEPRESSION SCREENING 1960 HEPATITIS C SCREENING 1966 RSV VACCINE (1 - 1-dose 75+ series) 2023 INFLUENZA VACCINE (#1) 2025 , 08/02/2022, 07/09/2021, Additional history exists COVID-19 VACCINE ( season) 2025 09/28/2022, 09/28/2022, 03/30/2022, Additional history exists BLOOD PRESSURE 11/20/2025 05/20/2025 CREATININE LEVEL 05/22/2026 05/22/2025, 06/2025, 05/20/2025, Additional history exists POTASSIUM LEVEL 05/22/2026 05/22/2025, 06/2025, 05/20/2025, Additional history exists Adult Td,Tdap Booster 10/05/2029 10/05/2019, 008 PNEUMOCOCCAL VACCINES (50+ years) Completed 11/25/2017, 09/24/2015, 07/02/2011 ZOSTER VACCINES Completed 10/17/2020, 01/2020, 08/14/2009 SMOKING STATUS SCREENING (Once After 26 Yrs) Completed 05/21/2025 HEPATITIS A VACCINES Aged Out No long er eligible based on patient's age to complete this topic HIB VACCINES Aged Out No longer eligi ble based on patient's age to complete this topic MENINGOCOCCAL VACCINES (ACWY) Aged Out No longer eligible based on patient's age to complete this topic MENINGOCOCCAL VACCINES (B) Aged Out N o longer eligible based on patient's age to complete this topic Medical Devices Implanted Type Area Client Account Manager Device Identifier Shelf Expiration Date Model / Serial / Lot Mesh Graft 6.[address] Polypropylene Echo Positioning System Hydrogel Barrier Hernia [place] - [id number] Implanted:Qty: 1 on 02/24/2022 by Giana Krause MD at [facility] N/A: Abdomen DAVOL 07/11/2023 [id number] / / [id number] Procedures Procedure Name Priority Date/Time Associated Diagnosis Comments MAGNESIUM Routine 05/22/2025 3:20 AM EDT CBC AND DIFFERENTIAL Routine 05/22/2025 3:20 AM EDT LFTS (HEPATIC PANEL) Routine 05/22/2025 3:20 AM EDT BASIC METABOLIC PANEL Routine 05/22/2025 3:20 AM EDT TOXOPLASMA GONDII PCR, BLOOD Routine 05/22/2025 3:20 AM EDT TOXOPLASMA GONDII ANTIBODY, IGM Routine 05/22/2025 3:20 AM EDT Toxoplasma gondii antibody, IgG Routine 05/22/2025 3:20 AM EDT Cytomegalovirus (CMV) PCR, blood Routine 05/22/2025 3:20 AM EDT CYTOMEGALOVIRUS (CMV) ANTIBODY, IGM Routine 05/22/2025 3:20 AM EDT CYTOMEGALOVIRUS (CMV) ANTIBODY, IGG Routine 05/22/2025 3:20 AM EDT INTRAVITREAL INJECTION, PHARMACOLOGIC AGENT - OS - LEFT EYE Routine 05/21/2025 7:02 PM EDT Acute retinal necrosis of left eye COLOR FUNDUS PHOTOGRAPHY - OU - BOTH EYES Routine 05/21/2025 2:54 PM EDT Acute retinal necrosis of left eye OCT, RETINA - OU - BOTH EYES Routine 05/21/2025 2:54 PM EDT Acute retinal necrosis of left eye MAGNESIUM Routine 05/21/2025 5:45 AM EDT CBC AND DIFFERENTIAL Routine 05/21/2025 5:45 AM EDT LFTS (HEPATIC PANEL) Routine 05/21/2025 5:45 AM EDT BASIC METABOLIC PANEL Routine 05/21/2025 5:45 AM EDT HTLV I/II ANTIBODIES Routine 05/21/2025 5:45 AM EDT T/B CLONALITY Routine 05/21/2025 12:00 AM EDT COLOR FUNDUS PHOTOGRAPHY - OU - BOTH EYES Routine 05/20/2025 1:26 PM EDT Acute retinal necrosis, left OCT, RETINA - OU - BOTH EYES Routine 05/20/2025 1:26 PM EDT Acute retinal necrosis, left FLUORESCEIN ANGIOGRAPHY - OU - BOTH EYES Routine 05/20/2025 1:25 PM EDT Acute retinal necrosis, left MAGNESIUM Routine 05/20/2025 5:30 AM EDT CBC AND DIFFERENTIAL Routine 05/20/2025 5:30 AM EDT LFTS (HEPATIC PANEL) Routine 05/20/2025 5:30 AM EDT BASIC METABOLIC PANEL Routine 05/20/2025 5:30 AM EDT CYTOGENETICS Routine 05/20/2025 12:00 AM EDT FLOW CYTOMETRY Routine 05/19/2025 5:00 AM EDT LFTS (HEPATIC PANEL) Routine 05/19/2025 5:00 AM EDT FREE LIGHT CHAINS, SERUM Routine 05/19/2025 5:00 AM EDT SPEP PANEL Routine 05/19/2025 5:00 AM EDT BETA-2 MICROGLOBULIN, BLOOD Routine 05/19/2025 5:00 AM EDT LDH Routine 05/19/2025 5:00 AM EDT SPECIAL SLIDE BOX Routine 05/19/2025 5:0 0 AM EDT LYMPHOMA / CLL PANEL Routine 05/19/2025 5:00 AM EDT CBC AND DIFFERENTIAL Routine 05/19/2025 5:00 AM EDT BASIC METABOLIC PANEL Routine 05/19/2025 5:00 AM EDT T SPOT TB TEST Routine 05/19/2025 5:00 AM EDT LYME SCREEN W/REFLEX TO ENZYME IMMUNOASSAYS Routine 05/19/2025 1:[address] ABDOMEN/PELVIS WITH CONTRAST Routine 05/18/2025 6:[address] CHEST WITH CONTRAST Routine 6:34 PM EDT LUMBAR PUNCTURE Routine 05/18/2025 11:59 AM EDT Vision abnormalities NON-ANIMAL STICKER CYTOLOGY, NON CSF, NON URINE Routine 05/18/2025 10:47 AM EDT LAB ADD ON Routine 05/18/2025 10:47 AM EDT CHEMISTRY COMMENT Routine 05/18/2025 10: 47 AM EDT HEMATOLOGY COMMENT Routine 05/18/2025 10 :47 AM EDT HEMATOLOGY COMMENT Routine 05/18/2025 10 :47 AM EDT CHEMISTRY COMMENT Routine 05/18/2025 10: 47 AM EDT CSF CYTOLOGY Routine 05/18/2025 10:47 AM EDT GLUCOSE, CSF Routine 05/18/2025 10:47 AM EDT TOTAL PROTEIN, CSF Routine 05/18/2025 10 :47 AM EDT CELL COUNT & DIFFERENTIAL, TUBE 4 Routine 05/18/2025 10:47 AM EDT Cell count/differential, CSF Routine 05/18/2025 10:47 AM EDT ENTEROVIRUS PCR, NON-BLOOD Routine 05/18/2025 10:47 AM EDT SEROLOGY SAVED SPECIMEN Routine 05/18/20 10:47 AM EDT [place] VIRUS PCR, CSF Routine 05/18/2025 10:47 AM EDT VARICELLA-ZOSTER (VZV) PCR, NON-BLOOD Routine 05/18/2025 10:47 AM EDT HSV PCR, CSF Routine 05/18/2025 10:47 AM EDT CULTURE/SMEAR, CSF Routine 05/18/2025 10 :47 AM EDT US BEDSIDE Routine 05/18/2025 9:56 AM EDT Vision abnormalities TYPE AND SCREEN (ABO,RH,ANTIBODY SCREEN) Routine 05/18/2025 4:09 AM EDT LFTS (HEPATIC PANEL) Routine 05/18/2025 4:09 AM EDT IGG SUBCLASSES Routine 05/18/2025 4:09 AM EDT SYPHILIS ANTIBODY SCREEN ASSAY Routine 05/18/2025 4:09 AM EDT SPECIAL SLIDE BOX Routine 05/18/2025 4:0 9 AM EDT PT-INR Routine 05/18/2025 4:09 AM EDT CBC AND DIFFERENTIAL Routine 05/18/2025 4:09 AM EDT MAGNESIUM Routine 05/18/2025 4:09 AM EDT BASIC METABOLIC PANEL Routine 05/18/2025 4:09 AM EDT HIV-1/2 ANTIGEN/ANTIBODY Routine 05/18/2025 4:09 AM EDT XR CHEST PA AND LATERAL 2 VIEWS Routine 05/17/2025 6:11 PM EDT URINE SEDIMENT Routine 05/17/2025 5:47 PM EDT URINALYSIS W/REFLEX URINE CULTURE Routine 05/17/2025 5:47 PM EDT BASIC METABOLIC PANEL STAT 05/17/2025 3:08 PM EDT CBC AND DIFFERENTIAL STAT 05/17/2025 3:08 PM EDT MRI FACE (ORBITS) WITH AND WITHOUT CONTRAST Routine 05/17/2025 4:05 AM EDT MRI BRAIN WITH AND WITHOUT CONTRAST STAT 05/17/2025 4:05 AM EDT C-REACTIVE PROTEIN STAT 05/16/2025 10 :51 PM EDT BLOOD CULTURE, ROUTINE STAT 10:51 PM EDT BLOOD CULTURE, ROUTINE STAT 10:51 PM EDT INTRAVITREAL INJECTION, PHARMACOLOGIC AGENT - OS - LEFT EYE Routine 05/16/2025 7:56 PM EDT Acute retinal necrosis, left TOXOPLASMA PCR, TISSUE,FLUID Routine 05/16/2025 7:45 PM EDT VIRAL PANEL, EYE FLUID Routine 7:45 PM EDT CHEMISTRY COMMENT Routine 05/16/2025 7:4 5 PM EDT FUNDUS PHOTOS - OU - BOTH EYES STAT 05/16/2025 7:18 PM EDT BASIC METABOLIC PANEL STAT 05/16/2025 5:53 PM EDT CBC AND DIFFERENTIAL STAT 05/16/2025 5:53 PM EDT SEDIMENTATION RATE (ESR) STAT 05/16/2025 5:53 PM EDT from Last 3 Months Results * Toxoplasma gondii PCR, blood (05/22/2025 3:20 AM EDT) [facility] TOXOPLASMA DNA PCR QUANT Not Detected Not Detected [employer] Comment: (NOTE) Assay Range: 376 copies/mL to 1.00E+08 copies/mL The limit of quantitation (LOQ) is 376 copies/mL. Toxoplasma DNA detected below the LOQ will be reported as Detected:<376 copies/mL. This test was developed and its performance characteristics determined by [facility]. It has not been cleared or approved by the U.S. Food and Drug Administration. Results should be used in conjunction with clinical findings, and should not form the sole basis for a diagnosis or treatment decision. Testing Performed At: [facility] [address] [place] [address], [address] [place], [place] [address] Market Asset Protection Manager: Zurdo Dhillon, PhD ИВАН (ABB) CLIA # [id number] FLAG Interpretation: A = Abnormal, H = High, L = Low Blood (Blood) 05/22/2025 3:2 0 AM EDT 05/22/2025 3:31 AM EDT Karmen Quarles MD MICROBIOLOGY - [facility] L ORDERABLES Final Result [employer]. [address] [place] [address] * (ABNORMAL) Cytomegalovirus (CMV) antibody, IgG (05/22/2025 3:20 AM EDT) [facility] Cytomegalovirus Ab, IgG 7.40(H) U/mL [facility] [place] [address] Comment: (NOTE) U/mL Interpretation ----- <0.60 Negative 0.60-0.69 Equivocal > or = 0.70 Positive A positive result indicates that the patient has antibody to CMV. It does not differentiate between an active or past infection. Blood (Blood) 05/22/2025 3:2 0 AM EDT 05/22/2025 3:31 AM EDT us Karmen Quarles MD NON CULTURE MICROBIOL OGY Final Result [employer]-[address] [facility] [address]LO[address],[place] [address], [facility] * (ABNORMAL) LFTs (hepatic panel) (05/22/2025 3:20 AM EDT) Only the most recent of5 resultswithin the time period is included. ALBUMIN 3.6 3.3 - 5.0 g/dL [facility] TOTAL BILIRUBIN 0.3 0.0 - 1.0 mg/dL [facility] DIRECT BILIRUBIN 0.1 0.0 - 0.3 mg/dL [facility] ALKALINE PHOSPHATASE 43(L) 45 - 115 U/L [facility] AST 18 10 - 40 U/L [facility] ALT 16 10 - 55 U/L [facility] TOTAL PROTEIN 5.8(L) 6.0 - 8.3 g/dL [facility] GLOBULIN 2.2 1.9 - 4.1 g/dL [facility] Blood 05/22/2025 3:20 AM EDT 05/22/2025 3:31 AM EDT Len Bustillos MD LAB BLOOD ORDERABLES Final Res ult [facility] [address] [place] [address] * Cytomegalovirus (CMV) antibody, IgM (05/22/2025 3:20 AM EDT) CMV IGM ANTIBODY Negative Negative [facility] Blood (Blood) 05/22/2025 3:2 0 AM EDT 05/22/2025 3:31 AM EDT Karmen Quarles MD NON CULTURE MICROBIOL OGY Final Result [facility] [address] [place] [address] * Toxoplasma gondii antibody, IgM (05/22/2025 3:20 AM EDT) [facility] TOXOPLASMA AB, IGM <8.00 AU/mL [employer] [address] Comment: (NOTE) AU/mL Interpretation ----- <8.00 Negative 8.00-9.99 Equivocal >9.99 Positive Physicians are advised to interpret the results of anti-Toxoplasma IgM tests with caution, and should not rely on any single test result as the sole determinant in diagnosing recently acquired infection. Blood (Blood) 05/22/2025 3:2 0 AM EDT 05/22/2025 3:31 AM EDT Karmen Quarles MD NON CULTURE MICROBIOL OGY Final Result Performing Organization Address [facility] Co de Phone Number [employer] [address] [facility],[place] [address] * Cytomegalovirus (CMV) PCR, blood (05/22/2025 3:20 AM EDT) [facility] CMV VIRAL LOAD Not Detected Not Detected IU/mL [facility] Comment: (NOTE) Assay Range: 35 - 10,000,000 IU/mL Please refer any questions to the Molecular Diagnostics Lab at [phone]. The quantification range of this assay is 35 to 10,000,000 IU/mL with a limit of detection at 35 IU/mL. Blood (Blood) 05/22/2025 3:2 0 AM EDT 05/22/2025 3:32 AM EDT Karmen Quarles MD NON CULTURE MICROBIOL OGY Final Result Performing Organization Address City/[facility]/ZIP Co de Phone Number [address] [address] * Toxoplasma Gondii antibody, IgG (05/22/2025 3:20 AM EDT) [facility] TOXOPLASMA AB, IGG <7.20 IU/mL [employer] [address] Comment: (NOTE) IU/mL Interpretation ------ <7.20 Negative 7.20-8.79 Equivocal >8.79 Positive Blood (Blood) 05/22/2025 3:2 0 AM EDT 05/22/2025 3:31 AM EDT us Karmen Quarles MD NON CULTURE MICROBIOL OGY Final Result [employer] [facility] [facility] [address] [facility] [address],[place] [address] * (ABNORMAL) CBC and differential (05/22/2025 3:20 AM EDT) Only the most recent of7 resultswithin the time period is included. WBC 23.45(H) 4.00 - 11.00 K/uL [facility] RBC 3.65(L) 4.50 - 5.90 M/uL [facility] HGB 10.3(L) 13.5 - 17.5 g/dL [facility] HCT 33.1(L) 41.0 - 53.0 % [facility] PLT 178 150 - 450 K/uL [facility] MCV 90.7 80.0 - 100.0 fL [facility] MCH 28.2 27.0 - 31.0 pg [facility] MCHC 31.1(L) 32.0 - 36.0 g/dL [facility] RDW 23.8(H) 11.5 - 14.5 % [facility] MPV 8.6 8.4 - 12.0 fL [facility] NRBC 0.00 0.00 /100 WBCs [facility] ABSOLUTE NRBC 0.00 0.00 K/uL [facility] DIFF METHOD Manual [facility] TOTAL CELLS COUNTED 116 [facility] NEUTS 16.4(L) 48.0 - 76.0 % [facility] LYMPHS 79.3(H) 18.0 - 41.0 % [facility] MONOS 4.3 4.0 - 11.0 % [facility] ABSOLUTE NEUTS 3.85 1.92 - 7.60 K/uL [facility] ABSOLUTE LYMPHS 18.60(H) 0.72 - 4.10 K/uL [facility] ABSOLUTE MONOS 1.01 0.16 - 1.10 K/uL [facility] MAGDY CELLS Present(A) None [facility] TE[facility] DROPS 1+(A) None [facility] Blood 05/22/2025 3:20 AM EDT 05/22/2025 3:32 AM EDT Chel Gallegos MD LAB BLOOD ORDERABLES Final Re sult Performing Organization Address [facility] Co de Phone Number [place] [phone] * Magnesium (05/22/2025 3:20 AM EDT) Only the most recent of4 resultswithin the time period is included. MAGNESIUM 2.0 1.7 - 2.4 mg/dL [facility] Blood 05/22/2025 3:20 AM EDT 05/22/2025 3:31 AM EDT Chel Gallegos MD LAB BLOOD ORDERABLES Final Re sult Performing Organization Address [facility] Co de Phone Number [address] [address] * Basic metabolic panel (05/22/2025 3:20 AM EDT) Only the most recent of7 resultswithin the time period is included. SODIUM 136 135 - 145 mmol/L [facility] POTASSIUM 4.0 3.4 - 5.0 mmol/L [facility] CHLORIDE 103 98 - 108 mmol/L [facility] CO2 24 23 - 32 mmol/L [facility] BUN 12 8 - 25 mg/dL [facility] CREATININE 0.70 0.60 - 1.30 mg/dL [facility] GLUCOSE 105 70 - 110 mg/dL [facility] CALCIUM 8.5 8.5 - 10.5 mg/dL [facility] EGFR 95 >59 mL/min/1.7 3m2 [facility] Comment:Estimated glomerular filtration rate calculated using the CKD-EPI refit equation. ANION GAP 9 3 - 17 mmol/L [facility] Blood 05/22/2025 3:20 AM EDT 05/22/2025 3:31 AM EDT us Lluvia Marley MD LAB BLOOD ORDERABLES Final Re sult [facility] [address] [place] [address] * Intravitreal Injection, Pharmacologic Agent - OS - Left Eye (05/21/2025 7:02 PM EDT) Other Narrative Rupert Boyd MD - 05/21/2025 7:02 PM EDT Table formatting from the original result was not included. Pre Procedure Drops to Injected Eye Anesthetic Medication: Proparacaine 0.5%. Injection Information Timeout performed: Yes. Anesthetic Medication: Proparacaine 0.5%. Antiseptic Medication Povidone Iodine. Antibiotic Medications: Moxifloxacin 0.5%. Injection Medication: 2,400 mcg foscarnet 2400 mcg/0.1 mL Route: Intravitreal, Site: Left Eye ND: [id number], Expiration date: 05/22/2025, Waste: 0.4 mL Notes Vitreoretinal Procedure Note Date: 05/21/2025 Pre op Diagnosis: 1. Acute retinal necrosis OS Post-op diagnosis: same Provider: Rupert Boyd MD Procedure: 1. Tap and culture of Anterior Chamber OS 2. Intravitreal Injection OS Foscarnet Anesthesia: 1. Topical 0.5% Proparacaine 2. Subconjunctival 2% Lidocaine Complications: None Procedure: After the risks, benefits, alternatives and techniques were discussed with the patient, all questions were answered and informed consent was signed. Proparacaine was instilled onto the ocular surface followed by 4% topical lidocaine on cotton tip then by subconjunctival 2% lidocaine. The eye was prepped in the usual fashion for this procedure. Once analgesia was achieved a lid speculum was placed. Calipers were used to kiak 3.5 mm posterior to the limbus in the inferotemporal quadrant. A drop of povidone was placed on the surface. A 33g needle was used to inject Foscarnet 2400mcg / 0.1cc intravitreally. Speculum was removed and additional moxifloxacin was applied. Vision was HM and the optic nerve perfused. The patient tolerated the procedure well and there were no complications. ? RD precautions reviewed.?? ? Patient was discharged back to his inpatient clinic in stable condition, they will follow up in 2-4 days pending clinical course. Rupert Boyd MD Vitreoretinal Surgical Fellow Elvis aCmarena MD OPHTHALMOLOGY PROCEDURES Fin al Result * Color Fundus Photography - OU - Both Eyes (05/21/2025 2:54 PM EDT) Anatomical Region Laterality Modality Head Photography us Rupert Boyd MD OPHTHALMOLOGY IMAGING Final Resu lt * OCT, RETINA - OU - BOTH EYES - [place] (05/21/2025 2:54 PM EDT) Rupert Boyd MD OPHTHALMOLOGY IMAGING Final Resu lt Performing Organization Address City/[facility] Co de Phone Number [facility] * HTLV I/II antibodies (05/21/2025 5:45 AM EDT) HTLV I/II AB Negative Negative [facility] LAB MED/PATH [place] Blood 05/21/2025 5:45 AM EDT 05/21/2025 6:07 AM EDT Todd Syed MD LAB BLOOD ORDERABLES Final Result Performing Organization Address [facility] de Phone Number [facility] LAB MED/PATH [address] [place] [address] * T/b Clonality (05/21/2025 12:00 AM EDT) 05/21/2025 05/21/2025 Narrative [facility] - 05/24/2025 12:43 PM EDT CASE: [id number] PATIENT: JOAO CALDERON Date: 1950 Sex: Male [facility] Department of Pathology [address] [place] [address], [address], [place] [address] CLIA License No.: [id number] Title Curator: Dr. Ayde Maki Physician: TODD SYED MD Specimen Submitted: Molecular Procedure Date: 05/21/2025 CLINICAL DATA: Clinical History: None given. Clinical Diagnosis: None given. METHOD: DNA was isolated from blood and analyzed by a polymerase chain reaction technique using a single mastermix with primers conjugated with the fluorescent dye 6-FAM targeting the Vy2, 3, 4, 5, 8, 9, 10, & 11 and Jy1/Jy2,JyP, and JyP1/JyP2 regions. ([employer], [place], [place]). The DNA was also amplified with control primers to multiple gene segments (64 to 600 bp in length) to assess the integrity and quality of the isolated DNA. The PCR products were analyzed by capillary gel electrophoresis. RESULT: Clonal pattern. 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 The expected size range for TCR gamma rearrangements is 159-207 bp. Note that the TCRG assay changed on May 09, 2024 and rearrangements (peak sizes) cannot be directly compared between current and prior assay. 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 Correlation with histologic, immunophenotypic, as well as other laboratory and clinical findings is suggested. Of note, the presence of a clonal population does not necessarily equate with neoplasia. These tests were developed and their performance characteristics determined by the [facility], [facility] They have not been cleared or approved by the U.S. Food and Drug Administration. The FDA has determined that such clearance or approval is not necessary By his/her signature below, the senior physician certifies that he/she personally reviewed all the laboratory data of the described specimen(s) and rendered or confirmed the diagnosis(es) related thereto. Final Diagnosis by Jose Ghosh M.D., Electronically signed on Saturday May 24, 2025 at 12:42:58PM us Todd Syed MD PATHOLOGY ORDERABLES Final Result [facility] [address] [place] [address] * Color Fundus Photography - OU - Both Eyes (05/20/2025 1:26 PM EDT) Anatomical Region Laterality Modality Head Photography Narrative 05/20/2025 2:47 PM EDT OD: attached, no retinitis OS: Media opacity. 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 Perivascular hemorrhages 360 in mid periphery. us Elvis Camarena MD OPHTHALMOLOGY IMAGING Final Result * OCT, RETINA - OU - BOTH EYES - [place] (05/20/2025 1:26 PM EDT) Narrative [facility] - 05/20/2025 2:47 PM EDT OD: Single nasal druse OS: Very limited views. Thickening centrally. Attached us Elvis Camarena MD OPHTHALMOLOGY IMAGING Final Result JESUS * Fluorescein Angiography - OU - Both Eyes (05/20/2025 1:25 PM EDT) Anatomical Region Laterality Modality Head Photography Narrative 05/20/2025 2:47 PM EDT OD: normal perfusion OS: 270 degrees of peripheral non-perfusion nasal and inferior. Perivascular leakage inferior > superior. Blockage from hemorrhages. Elvis Camarena MD OPHTHALMOLOGY IMAGING Final Result * Cytogenetics (05/20/2025 12:00 AM EDT) 05/20/2025 05/21/2025 Narrative [facility] - 06/14/2025 1:20 PM EDT CASE: [id number] PATIENT: JOAO CALDERON Date: 1950 Sex: Male [facility] Department of Pathology [address] [place] [address] CLIA License No.: [id number] Title Curator: Regine Prince, PhD, [facility] Physician: CHEL GALLEGOS MD Specimen Submitted: cg-Leukemic Blood ~SP_Collection_date Window Trimmer Apprentice: Brandi Ph.D., Jennifer Addended Report Reason for Addendum #1: Additional Cytogenetics Test Results RESULTS: nuc salvador(TRA/Dx2)(5'TRA/D sep 3'TRA/Dx1)[14/100] CELLS CULTURED: YES METAPHASES COUNTED: N/A ANALYZED: N/A SCORED: N/A BANDING: FISH INTERPRETATION: T-Cell Receptor alpha/delta rearrangement WAS OBSERVED by FISH assay performed on this PHA-stimulated peripheral blood specimen. A TRA/D rearrangement is a typical cytogenetic aberration in a subset of T-cell leukemias and lymphomas. See additional details below. Karyotype analysis is pending and may identify aberrations not detected by FISH. Results will be issued as an addendum to this report. FISH evaluation for T-Cell Receptor alpha/delta rearrangement was performed on nuclei with the [employer] LSI TRA/D Dual Color, Break Apart Rearrangement Probe ([employer]) at 14q11.2 and is interpreted as ABNORMAL. Rearrangement was observed in 14/100 nuclei, which exceeds the normal range (up to 3%) established in our Laboratory. COMMENTS: This FISH test was developed and its performance determined by the [facility] Cytogenetics Laboratory as required by the CLIA '88 regulations. It has not been cleared or approved by the U.S. Food and Drug Administration. This test is used for clinical purposes. 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 A portion of this testing process was performed at [facility] Ctrax site [id number]. 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 COMMENTS: This limited study does not rule out mosaicism at a level that is standard for a routine analysis. Small chromosome anomalies may not be detected. Chromosome analysis was performed at a level of 400 bands or greater. 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 A portion of this testing process was performed at [facility] Ctrax site: [id number] Addendum #1 by Kellen Saldana Ph.D., Electronically signed on Saturday June 14, 2025 at 01:20:33PM us Chel Gallegos MD PATHOLOGY ORDERABLES Edited R esult - Final Performing Organization Address City/[facility] Co de Phone Number [facility] [address] [place] [address] * Lymphoma / CLL panel (05/19/2025 5:00 AM EDT) LYMPHOMA / CLL PANEL Specimen received in [facility] Core Laboratory. Results, when complete, will be available as a separate report. [facility] Blood 05/19/2025 5:00 AM EDT 05/19/2025 5:16 AM EDT us Lizette Cardenas MD LAB BLOOD ORDERABLES Final Result Performing Organization Address [facility] Co de Phone Number [address] [address] * Special slide box (05/19/2025 5:00 AM EDT) Only the most recent of2 resultswithin the time period is included. SPECIAL SLIDE BOX Slide in Main Heme Lab [facility] Blood 05/19/2025 5:00 AM EDT 05/19/2025 5:16 AM EDT Lizette Cardenas MD LAB BLOOD ORDERABLES Final Result Performing Organization Address [facility] Co de Phone Number [address] [address] * Flow Cytometry (05/19/2025 5:00 AM EDT) 05/19/2025 5:00 AM EDT 05/19/2025 12:08 PM EDT Narrative SEE NARRATIVE - 05/22/2025 7:26 PM EDT [facility] Tel: Fax: [facility] Flow Send Out Report Patient Name: JOAO CALDERON : 1950 (Age: 74) Sex: M Institution: [facility] Location: [place] [address] Date of Collection: 05/19/2025 Date of Reported: 05/22/2025 19:26 Results To: Lizette Cardenas MD CLINICAL HISTORY: Lymphocytosis, concern for leukemic lymphoma. SPECIMENS RECEIVED: A: PERIPHERAL BLOOD FOR FLOW CYTOMETRY SPECIMEN: Peripheral blood DIFFERENTIAL (% OF ALL WBCs): Lymphocytes: 80% GATE ANALYZED: Lymphocyte IMMUNOPHENOTYPIC POPULATIONS (% OF ALL CELLS): 72% T cells (CD2+ CD3+ CD4+ CD5+ CD7+ CD25- CD26+ [id number]+, with markedly increased CD4:CD8 ratio of 83:1) Background population of 1% CD3+ CD8+ T cells with no immunophenotypic aberrancy. 2% Polyclonal B cells. <1% NK cells. INTERPRETATION: There is a marked skewing of the CD4:CD8 T-cell ratio, suggestive of a CD4-positive T-cell neoplasm. Review of the concurrent peripheral blood smear reveals predominantly mature-appearing lymphocytes with condensed chromatin and scant cytoplasm; occasional nuclear irregularity is noted, as are occasional larger cells with prominent nucleoli. The differential includes T-prolymphocytic leukemia (T-PLL), adult T-cell leukemia/lymphoma (ATLL), and Sezary syndrome. Absence of CD25 argues against ATLL and preservation of CD7 argues against Sezary syndrome. Clinical correlation and additional studies are recommended, including testing for HTLV-1/2 antibodies and cytogenetics/FISH to assess for TCL1::TRA/D rearrangement characteristic of T-PLL. Flow cytometric assessment of the following antigens was incorporated into the evaluation and interpretation of this specimen: CD2, CD3, CD4, CD5, CD7, CD8, CD10, CD11c, CD16, CD19, CD20, CD23, CD38, CD45, CD56, CD57, surface kappa, surface lambda, CD52, CD25, CD26 (21 total unique antibodies). Professional interpretation of this flow cytometry specimen was performed by the pathologist listed below at [facility], [place], [place]. The technical component of this test was performed at [facility], [address] [place] [address] (CLIA Market Asset Protection Manager: Alina Guzman MD, PhD). This test was developed and its performance characteristics determined by [facility]. It has not been cleared or approved by the U.S. Food and Drug Administration (FDA). The FDA has determined that such clearance or approval is not necessary; the performing laboratory has established and verified the test's accuracy and precision. This test is for clinical purposes, and should not be regarded as investigational or for research. The [facility] laboratory and [facility] laboratory are both certified under CLIA-88 as qualified to perform high complexity laboratory testing. Electronically Signed Out By: Yolanda Can MD Lizette Cardenas MD PATHOLOGY ORDERABLES Final Result Performing Organization Address [facility] de Phone Number SEE NARRATIVE * LDH (05/19/2025 5:00 AM EDT) LDH 184 110 - 210 U/L [facility] Blood 05/19/2025 5:00 AM EDT 05/19/2025 5:16 AM EDT Result [facility] Lizette Cardenas MD LAB BLOOD ORDERABLES Final Result Performing Organization Address [facility] de Phone Number [address] [address] * (ABNORMAL) SPEP PANEL (05/19/2025 5:00 AM EDT) Total Protein 5.5(L) 6.0 - 8.3 g/dL [facility] IMMUNOGLOBULIN G 720 614 - 1,295 mg/dL [facility] IgA 208 69 - 309 mg/dL [facility] IMMUNOGLOBULIN M 32(L) 53 - 334 mg/dL [facility] SPEP Normal pattern [facility] Comment: Normal SPEP: Normal pattern Performing Physician, Girish Powell M.D., [id number] Serum protein electrophoresis results should be evaluated in the context of separately reported serum free light chain levels and ratio when these additional results are available. Blood 05/19/2025 5:00 AM EDT 05/19/2025 5:16 AM EDT Lizette Cardenas MD LAB BLOOD ORDERABLES Final Result Performing Organization Address [facility]/ZIP Co de Phone Number [address] [address] * T spot TB test (05/19/2025 5:00 AM EDT) T-SPOT.TB Negative Negative [facility] [employer] Comment: (NOTE) A negative test result does not exclude the possibility of exposure to or infection with Mycobacterium tuberculosis (M. tuberculosis). Patients with recent exposure to TB infected individuals exhibiting a negative T-SPOT.TB result should be considered for retesting within 6 weeks or if other relevant clinical symptoms indicate. Results from T-SPOT.TB testing must be used in conjunction with each individual's epidemiological history, current medical status, and results of other diagnostic evaluations. The T-SPOT.TB test is qualitative and results are reported as positive, borderline, or negative, given that the test controls perform as expected. In line with the Centers for Disease Control and Prevention's 2010 recommendation to report quantitative measurements alongside the qualitative result, the laboratory provides spot counts for informational purposes only. The T-SPOT.TB test should not be interpreted as a quantitative test. Panel A Spot Count Corrected For Neg Control 0 Smackages Panel B Spot Count Corrected For Neg Control 0 [facility] Negative Control Passed [facility] Positive Control Passed [facility] Comment: (NOTE) For additional information, please refer to http://education.[employer]/faq/XPE886 (This link is being provided for informational/ educational purposes only.) Blood 05/19/2025 5:00 AM EDT 05/19/2025 5:16 AM EDT us Len Bustillos MD LAB BLOOD ORDERABLES Final Res ult [facility] [address] [place], [place] * (ABNORMAL) Free light chains, serum (05/19/2025 5:00 AM EDT) FREE KAPPA LT CHAIN 21.8(H) 3.3 - 19.4 mg/L [facility] FREE LAMBDA LT CHAIN 20.2 5.7 - 26.3 mg/L [facility] FREE KAPPA LAMBDA RAT 1.08 0.30 - 1.70 [facility] Blood 05/19/2025 5:00 AM EDT 05/19/2025 5:16 AM EDT us Lizette Cardenas MD LAB BLOOD ORDERABLES Final Result Performing Organization Address [facility] Co de Phone Number [address] [address] * (ABNORMAL) Beta-2 microglobulin, blood (05/19/2025 5:00 AM EDT) Pathologist [facility] [place] BETA 2 MICROGLOBUL 3.11(H) 0.80 - 2.34 mcg/mL [facility] Blood 05/19/2025 5:00 AM EDT 05/19/2025 5:16 AM EDT us Lizette Cardenas MD LAB BLOOD ORDERABLES Final Result Performing Organization Address City/[facility]/ZIP Co de Phone Number [address] [address] * Lyme Screen w/Reflex to Enzyme Immunoassays (05/19/2025 1:45 AM EDT) LYME IGG/IGM AB Non-React edward [facility] Blood 05/19/2025 1:45 AM EDT 05/19/2025 6:16 AM EDT us Len Bustillos MD LAB BLOOD ORDERABLES Final Res ult Performing Organization Address City/[facility]/ZIP Co de Phone Number [address] [address] * CT CHEST WITH CONTRAST (05/18/2025 6:34 PM EDT) Anatomical Region Laterality Modality Chest Computed Tomogra phy 05/19/2025 8:31 AM EDT Impressions 05/19/2025 9:27 AM EDT 1. Multiple nodules along the fissures and pleural surfaces in both lungs, which are nonspecific and may reflect intrapulmonary lymph nodes. 2. Additional scattered pulmonary nodules bilaterally including a dominant 9 mm part solid nodule in the right upper lobe. 3. No mediastinal or hilar lymphadenopathy. RECOMMENDATION: Follow-up chest CT in 3-4 months to assess interval changes of the lung nodules. ATTESTATION: I, Dr. Andrew Whitman as teaching physician, have reviewed the images for this case and if necessary edited the report originally created by Nahomi Hall. Narrative 05/19/2025 9:[address] CHEST WITH CONTRAST Referring clinician's provided indication for this examination in Epic: *Other Anomalies Or Syndromes; Concern for lymphoproliferative disorder, staging scans TECHNIQUE: Multidetector CT of the chest was performed with intravenous contrast using tailored dose modulation techniques. COMPARISON: XR CHEST PA AND LATERAL 2 VIEWS FINDINGS: Devices/Tubes/Lines: None. Lungs: The central airways are patent. There are multiple (~10) nodules along the fissures and pleural surfaces in both lungs measuring up to 9 mm along the right major fissure (4:201). There are additional pulmonary nodules in the lung parenchyma bilaterally; for example, 9 mm part solid nodule in the right upper lobe (4:73) with a 3 mm solid component; additional 4 mm solid nodule in the right upper lobe (4:108); and 3 mm solid nodule in the left upper lobe (4:102). There is dependent atelectasis in both lower lobes. There is a calcified granuloma in the right lower lobe. Pleura: No pleural effusion or pneumothorax. Mediastinum: There is a 7 mm left thyroid nodule. Cardiac chambers are within normal limits in size. No pericardial effusion. Severe amount of coronary calcifications. Lymph Nodes: No enlarged supraclavicular, axillary, mediastinal, or hilar lymph nodes. Upper Abdomen: Please see concurrent abdominal CT for abdominal findings. Chest Wall: No chest wall mass. Bones: Multilevel degenerative changes of the imaged spine. Procedure Note Andrew Whitman MD - 05/19/2025 CT CHEST WITH CONTRAST Referring clinician's provided indication for this examination in [facility]:*Other Anomalies Or Syndromes; Concern for lymphoproliferative disorder,staging scans TECHNIQUE: Multidetector CT of the chest was performed with intravenouscontrast using tailored dose modulation techniques. COMPARISON: XR CHEST PA AND LATERAL 2 VIEWS FINDINGS: Devices/Tubes/Lines: None. Lungs: The central airways are patent. There are multiple (~10) nodulesalong the fissures and pleural surfaces in both lungs measuring up to 9 mmalong the right major fissure (4:201). There are additional pulmonarynodules in the lung parenchyma bilaterally; for example, 9 mm part solidnodule in the right upper lobe (4:73) with a 3 mm solid component;additional 4 mm solid nodule in the right upper lobe (4:108); and 3 mmsolid nodule in the left upper lobe (4:102). There is dependentatelectasis in both lower lobes. There is a calcified granuloma in theright lower lobe. Pleura: No pleural effusion or pneumothorax. Mediastinum: There is a 7 mm left thyroid nodule. Cardiac chambers arewithin normal limits in size. No pericardial effusion. Severe amount ofcoronary calcifications. Lymph Nodes: No enlarged supraclavicular, axillary, mediastinal, or hilarlymph nodes. Upper Abdomen: Please see concurrent abdominal CT for abdominalfindings. Chest Wall: No chest wall mass. Bones: Multilevel degenerative changes of the imaged spine. IMPRESSION: 1. Multiple nodules along the fissures and pleural surfaces in bothlungs, which are nonspecific and may reflect intrapulmonary lymph nodes. 2. Additional scattered pulmonary nodules bilaterally including adominant 9 mm part solid nodule in the right upper lobe. 3. No mediastinal or hilar lymphadenopathy. RECOMMENDATION: Follow-up chest CT in 3-4 months to assess interval changes of the lungnodules. ATTESTATION: I, Dr. Andrew Whitman as teaching physician, havereviewed the images for this case and if necessary edited the reportoriginally created by Nahomi Hall. us Lizette Cardenas MD IMG CT CHEST Final Result * CT ABDOMEN/PELVIS WITH CONTRAST (05/18/2025 6:34 PM EDT) Anatomical Region Laterality Modality Abdomen, Pelvis Computed Tomogra phy 05/19/2025 8:29 AM EDT Impressions 05/19/2025 2:16 PM EDT 1. 2.5 cm right lower pole heterogenously enhancing renal lesion is indeterminate. 2. Indeterminant 1.8 cm right adrenal nodule. 3. No abdominopelvic lymphadenopathy or splenomegaly. RECOMMENDATIONS: Consider renal/adrenal mass MRI for further evaluation. ATTESTATION: I, Dr. Janie Tirado as teaching physician, have reviewed the images for this case and if necessary edited the report originally created by Dominga Love. Narrative 05/19/2025 2:[address] ABDOMEN/PELVIS WITH CONTRAST Referring clinician's provided indication for this examination in Epic: *Other Anomalies Or Syndromes; Concern for lymphoproliferative disorder, staging scans TECHNIQUE: Multidetector-row CT of the abdomen and pelvis was performed after administration of intravenous contrast using tailored dose modulation techniques. Images were reconstructed in the axial, coronal, and sagittal planes. COMPARISON: CT ABDOMEN/PELVIS WITH CONTRAST 2024- FINDINGS: Lower Chest: CT chest from the same day is reported separately. Liver: Subcentimeter hypodensity in segment 4A, too small to characterize and unchanged from 12/14/2024. Biliary: Noninflamed, decompressed gallbladder. No biliary ductal dilatation. Spleen: Splenic hypodensity measuring 8 mm (5:182) is unchanged 13/12/2024. No splenomegaly. Pancreas: No masses or ductal dilatation. Adrenal Glands: Unchanged size of a 1.8 cm right adrenal nodule from 12/04/2024. No left adrenal nodules. Kidneys/Ureters: Since 12/14/2024, essentially unchanged size of an exophytic heterogeneously-attenuating lesion at the right inferior pole (measuring 2.1 x 1.7 x 2.5 cm). Bilateral cortical renal cysts measuring up to 7.0 cm in the right mid portable. Nonobstructive 4 mm right inferior pole calculus. No hydronephrosis. Bowel: Prior fundoplication. Small hiatal hernia. Cecectomy with intact anastomosis in the mid abdomen. Moderate diverticulosis without diverticulitis. Peritoneum/Retroperitoneum: No masses, pneumoperitoneum, or fluid. Lymph Nodes: No lymphadenopathy. Pelvic Organs/Bladder: Distended bladder. No wall thickening. Prostatomegaly. Vessels: No abdominal aortic aneurysm. Mild atherosclerotic calcifications of the aorta and iliac branches. Bones/Soft Tissues: Fat stranding along the midline anterior abdominal wall, likely postoperative. Exaggerated thoracic kyphosis and lumbar lordosis and degenerative endplate changes. No destructive osseous lesions. T9 and T11 vertebral body hemangiomas. [facility] ABDOM[facility]/PELVIS WITH CONTRAST Referring clinician's provided indication for this examination in Epic:*Other Anomalies Or Syndromes; Concern for lymphoproliferative disorder,staging scans TECHNIQUE: Multidetector-row CT of the abdomen and pelvis was performedafter administration of intravenous contrast using tailored dosemodulation techniques. Images were reconstructed in the axial, coronal,and sagittal planes. COMPARISON: CT ABDOMEN/PELVIS WITH CONTRAST FINDINGS: Lower Chest: CT chest from the same day is reported separately. Liver: Subcentimeter hypodensity in segment 4A, too small to characterizeand unchanged from 12/14/2024. Biliary: Noninflamed, decompressed gallbladder. No biliary ductaldilatation. Spleen: Splenic hypodensity measuring 8 mm (5:182) is unchanged 13/12/2024.No splenomegaly. Pancreas: No masses or ductal dilatation. Adrenal Glands: Unchanged size of a 1.8 cm right adrenal nodule from12/04/2024. No left adrenal nodules. Kidneys/Ureters: Since 12/14/2024, essentially unchanged size of anexophytic heterogeneously-attenuating lesion at the right inferior pole(measuring 2.1 x 1.7 x 2.5 cm). Bilateral cortical renal cysts measuringup to 7.0 cm in the right mid portable. Nonobstructive 4 mm right inferiorpole calculus. No hydronephrosis. Bowel: Prior fundoplication. Small hiatal hernia. Cecectomy with intactanastomosis in the mid abdomen. Moderate diverticulosis withoutdiverticulitis. Peritoneum/Retroperitoneum: No masses, pneumoperitoneum, or fluid. Lymph Nodes: No lymphadenopathy. Pelvic Organs/Bladder: Distended bladder. No wall thickening.Prostatomegaly. Vessels: No abdominal aortic aneurysm. Mild atherosclerotic calcificationsof the aorta and iliac branches. Bones/Soft Tissues: Fat stranding along the midline anterior abdominalwall, likely postoperative. Exaggerated thoracic kyphosis and lumbarlordosis and degenerative endplate changes. No destructive osseouslesions. T9 and T11 vertebral body hemangiomas. IMPRESSION: 1. 2.5 cm right lower pole heterogenously enhancing renal lesion isindeterminate. 2. Indeterminant 1.8 cm right adrenal nodule. 3. No abdominopelvic lymphadenopathy or splenomegaly. RECOMMENDATIONS: Consider renal/adrenal mass MRI for further evaluation. ATTESTATION: I, Dr. Janie Tirado as teaching physician, have reviewedthe images for this case and if necessary edited the report originallycreated by Dominga Love. us Lizette Cardenas MD IMG CT ABD/PELVIS Fin al Result * Lumbar Puncture (05/18/2025 11:59 AM EDT) Anatomical Region Laterality Modality Other Narrative 05/18/2025 11:59 AM EDT Raymundo Haynes MD 05/18/2025 12:00 PM Lumbar Puncture Date/Time: 05/18/2025 11:59 AM Performed by: Raymundo Haynes MD Authorized by: Raymundo Haynes MD [place] Protocol: Consent obtained: Yes Time out: Immediately prior to the procedure a time-out was called A time out verifies correct patient, procedure, equipment and site/side marked as required: Indications: Indications: Evaluation for infection, evaluation for altered mental status and evaluation for malignancy Anesthesia: Local infiltration Local anesthetic: Lidocaine 1% without epinephrine Anesthetic total (ml): 4 Procedure Details: Preparation: Patient was prepped and draped in usual sterile fashion Lumbar space: L4-L5 interspace Patient's position: Sitting Needle gauge: 20 Number of attempts: 1 Fluid appearance: Clear Total volume (ml): 18 Post-procedure: Sterile gauze 4x4 and adhesive bandage applied Patient tolerance: Patient tolerated the procedure well with no immediate complications Images: Images saved: Yes us Raymundo Haynes MD NEUROLOGY ORDERABLES Final Result * Chemistry Comment (05/18/2025 10:47 AM EDT) Only the most recent of3 resultswithin the time period is included. Comments (Chemistry) CSF [facility] 05/18/2025 10:4 7 AM EDT 05/18/2025 1:58 PM EDT us Lizette Cardenas MD LAB BLOOD ORDERABLES Final Result Performing Organization Address City/[facility]/ZIP Co de Phone Number [address] [address] * Serology Saved Specimen (05/18/2025 10:47 AM EDT) SEROLOGY SAVE TEST STORING FROZEN SPECIMEN IN LAB FOR 6 MONTHS [facility] 05/18/2025 10:4 7 AM EDT 05/18/2025 11:56 AM EDT us Lluvia Marley MD MICROBIOLOGY - GENERAL ORDERA BLES Final Result Performing Organization Address [facility] Co de Phone Number [address] [address] * (ABNORMAL) Cell count & differential, tube 4 (05/18/2025 10:47 AM EDT) CSF COLOR COLORLESS COLORLESS [facility] Tube #, CSF 4 [facility] CSF TURBIDITY Clear Clear [facility] XANTHOCHROMIA None None [facility] RBC, CSF None 0 - 5 /uL [facility] CSF MHCT Not Done 0.0 % [facility] Nucleated cells, CSF 8(H) 0 - 5 /uL [facility] Comment:Total Nucleated Cell s = White Blood Cells + Other Nucleated Cells CSF NEUTS 3(H) 0 % [facility] CSF BANDS 0 0 % [facility] CSF LYMPHS 79 0 - 100 % [facility] CSF REACTIVE LYMPHS 6(H) 0 % [facility] CSF MONOS 12 0 - 100 % [facility] CSF EOS 0 0 % [facility] CSF BASO 0 0 % [facility] CSF BLAST 0 0 % [facility] CSF UNCLASSIFIED 0 0 % [facility] CSF MACROPHAGE/LININ G 0 0 % [facility] NRBC 0 0 /100 WBCs [facility] Cerebrospinal Fluid (Cerebrospinal Fluid) 05/18/2025 10:47 AM EDT 05/18/2025 12:34 PM EDT us Lizette Cardenas MD BODY FLUIDS AND STOOL S ORDERABLES Final Result [facility] [address] [place] [address] * VARICELLA-ZOSTER (VZV) PCR, NON-BLOOD (05/18/2025 10:47 AM EDT) Specimen Source CSF TUBE 2 [facility] DPT OF LAB MED AND PAT+ Varicella-Zoster Virus PCR Negative Negative [facility] DPT OF LAB MED AND PAT+ Comment: (NOTE) ADDITIONAL INFORMATION This test was developed and its performance characteristics determined by [facility] in a manner consistent with CLIA requirements. This test has not been cleared or approved by the U.S. Food and Drug Administration. Cerebrospinal Fluid (Cerebrospinal Fluid) 05/18/2025 10:47 AM EDT 05/18/2025 12:32 PM EDT us Lizette Cardenas MD BODY FLUIDS AND STOOL S ORDERABLES Final Result Performing Organization Address City/[facility]/ZIP Co de Phone Number [facility] DPT OF LAB MED AND PAT+ [address] [place] [address] * Hematology comment (05/18/2025 10:47 AM EDT) Only the most recent of2 resultswithin the time period is included. HEMATOLOGY COMMENT: TUBE 4 [facility] 05/18/2025 10:4 7 AM EDT 05/18/2025 12:34 PM EDT us Lizette Cardenas MD LAB BLOOD ORDERABLES Final Result [address] [address] * Non-Home Care Scheduler Cytology (05/18/2025 10:47 AM EDT) 05/18/2025 10:4 7 AM EDT 05/19/2025 7:55 AM EDT Narrative SEE NARRATIVE - 06/22/2025 2:53 [place] [address] Non Home Care Scheduler Cytology Report Patient Name: JOAO CALDERON : 1950 (Age: 74) Sex: M Institution: [facility] Location: [place] [address] Date of Collection: 05/18/2025 Date of Reported: 05/22/2025 12:45 Results to: Lizette Cardenas MD FINAL DIAGNOSIS A. CEREBRAL SPINAL FLUID, LUMBAR: SPECIMEN ADEQUACY: Satisfactory for evaluation. INTERPRETATION: NO MALIGNANT CELLS IDENTIFIED. DIAGNOSIS: Lymphocytes and monocytes. Electronically Signed Out By: Anjali Oglesby [facility] (ASCP) MB By his/her signature above, the pathologist listed as making the Final Diagnosis certifies that he/she has personally reviewed the case and confirmed the diagnosis. All slides and stains were of sufficient quality to establish the diagnosis, unless otherwise stated. PROCEDURES/ADDENDA [facility] CSF Flow Ordered Date: 05/19/2025 SPECIMEN: CSF DIFFERENTIAL (% OF ALL WBCs): Lymphocytes: 63% GATE ANALYZED: Lymphocyte IMMUNOPHENOTYPIC POPULATIONS (% OF ALL CELLS): 2% Polyclonal B cells. 61% CD5+ CD19- T cells. INTERPRETATION: There is no evidence for a monoclonal B-cell population. Flow cytometric assessment of the following antigens was incorporated into the evaluation and interpretation of this specimen: CD5, CD10, CD11c, CD19, CD20, CD23, CD38, CD45, surface kappa, surface lambda (10 total unique antibodies). Professional interpretation of this flow cytometry specimen was performed by the pathologist listed below at [facility], [place], [place]. The technical component of this test was performed at [facility], [address] [place] [address], [place] [address] (CLIA Market Asset Protection Manager: Alina Guzman MD, PhD). This test was developed and its performance characteristics determined by [facility]. It has not been cleared or approved by the U.S. Food and Drug Administration (FDA). The FDA has determined that such clearance or approval is not necessary; the performing laboratory has established and verified the test's accuracy and precision. This test is for clinical purposes, and should not be regarded as investigational or for research. The [facility] laboratory and [facility] laboratory are both certified under CLIA-88 as qualified to perform high complexity laboratory testing. CLINICAL HISTORY Unspecified visual disturbance SPECIMEN SOURCE A: CEREBRAL SPINAL FLUID, LUMBAR GROSS DESCRIPTION A. CEREBRAL SPINAL FLUID, LUMBAR: Received 4 ccs of clear colorless fluid labeled with the patients name JOAO CALDERON and ). 2 Cytospin slides made. Specimen container received leaking. Specimen accessioned by [facility] Specimen sent to [facility] Flow by [facility] [place] PANEL (FOR CLL, T-ALL) us Lizette Cardenas MD CYTOLOGY ORDERABLES E dited Result - Final SEE NARRATIVE * CSF Culture/Gram Stain (05/18/2025 10:47 AM EDT) Special Requests NO, CSF SHUNT OR OTHER FOREIGN MATERIAL IS NOT PRESENT, AND PATIENT IS NOT RECEIVING INTRATHECAL MEDICATION. 05/18/2025 10:47 AM EDT [facility] GRAM STAIN SPUN SLIDE: Moderate MONONUCLEAR CELLS , NO POLYS , NO ORGANISMS SEEN 05/18/2025 2:07 PM EDT [facility] CSF Culture/Smear NO GROWTH 05/19/2025 7:22 AM EDT [facility] Cerebrospinal Fluid (Cerebrospinal Fluid) 05/18/2025 10:47 AM EDT 05/18/2025 11:55 AM EDT Comment:TUBE 3 us Lizette Cardenas MD MICROBIOLOGY - GENERA L ORDERABLES Final Result [facility] [address] [place] [address] * West Nile Virus PCR, CSF (05/18/2025 10:47 AM EDT) RESULT Negative Negative [facility] DPT OF LAB MED AND PAT+ Comment: (NOTE) A negative result does not exclude infection with West Nile virus. Serologic testing as per CDC guidelines may be indicated. ADDITIONAL INFORMATION This test was developed and its performance characteristics determined by [facility] in a manner consistent with CLIA requirements. This test has not been cleared or approved by the U.S. Food and Drug Administration. Cerebrospinal Fluid (Cerebrospinal Fluid) 05/18/2025 10:47 AM EDT 05/18/2025 12:32 PM EDT Lizette Cardenas MD BODY FLUIDS AND STOOL S ORDERABLES Final Result Performing Organization Address [facility] Co de Phone Number [facility] DPT OF LAB MED AND PAT+ [address] [place] [address] * Enterovirus PCR, Non-blood (05/18/2025 10:47 AM EDT) Pathologist [facility] ENTEROVIRUS PCR Negative Negative [facility] DPT OF LAB MED AND PAT+ Comment: (NOTE) ADDITIONAL INFORMATION This test was developed and its performance characteristics determined by [facility] in a manner consistent with CLIA requirements. This test has not been cleared or approved by the U.S. Food and Drug Administration. Source CSF [facility] DPT OF LAB MED AND PAT+ 05/18/2025 10:4 7 AM EDT 05/18/2025 1:58 PM EDT Lizette Cardenas MD BODY FLUIDS AND STOOL S ORDERABLES Final Result Performing Organization Address [facility] Co de Phone Number [facility] DPT OF LAB MED AND PAT+ [address] [place] [address] * HSV PCR, CSF (05/18/2025 10:47 AM EDT) Special Requests No Special Requests 05/18/2025 10:47 AM EDT [facility] HSV DNA Amplification NEGATIVE FOR HERPES SIMPLEX VIRUS (TYPES 1 AND 2) NUCLEIC ACID 05/19/2025 10:22 AM EDT [facility] HSV DNA Amplification The detection of herpes simplex virus type 1 (HSV 1) and herpes simplex virus type 2 (HSV 2) DNA is based upon the use of real time nucleic acic amplification and detection. 05/19/2025 10:22 AM EDT [facility] Cerebrospinal Fluid (Cerebrospinal Fluid) 05/18/2025 10:47 AM EDT 05/18/2025 11:55 AM EDT Comment:TUBE 3 Lizette Cardenas MD MICROBIOLOGY - GENERA L ORDERABLES Final Result [address] [address] * Lab Add On: Flow cytometry add on to CSF from 05/18 (05/18/2025 10:47 AM EDT) TEST REQUESTED FLOW CYTOMETRY ADD ON TO CSF FROM 05 18 [facility] Comments (Chemistry) ADD ON COMPLETE. [facility] 05/18/2025 10:4 7 AM EDT 05/19/2025 7:49 AM EDT us Lizette Cardenas MD LAB BLOOD ORDERABLES Final Result Performing Organization Address City/[facility]/ZIP Co de Phone Number [address] [address] * (ABNORMAL) Cell count/differential, CSF (05/18/2025 10:47 AM EDT) CSF COLOR COLORLESS COLORLESS [facility] Tube #, CSF 1 [facility] CSF TURBIDITY Clear Clear [facility] XANTHOCHROMIA None None [facility] RBC, CSF 8(H) 0 - 5 /uL [facility] CSF MHCT Not Done 0.0 % [facility] Nucleated cells, CSF 8(H) 0 - 5 /uL [facility] Comment:Total Nucleated Cell s = White Blood Cells + Other Nucleated Cells CSF NEUTS 1(H) 0 % [facility] CSF BANDS 0 0 % [facility] CSF LYMPHS 82 0 - 100 % [facility] CSF REACTIVE LYMPHS 3(H) 0 % [facility] CSF MONOS 14 0 - 100 % [facility] CSF EOS 0 0 % [facility] CSF BASO 0 0 % [facility] CSF BLAST 0 0 % [facility] CSF UNCLASSIFIED 0 0 % [facility] CSF MACROPHAGE/LININ G 0 0 % [facility] NRBC 0 0 /100 W[facility]s [facility] Cerebrospinal Fluid (Cerebrospinal Fluid) 05/18/2025 10:47 AM EDT 05/18/2025 12:32 PM EDT us Lziette Cardenas MD BODY FLUIDS AND STOOL S ORDERABLES Final Result [address] [address] * (ABNORMAL) Total protein, CSF (05/18/2025 10:47 AM EDT) CSF TOTAL PROTEIN 85(H) 5 - 55 mg/dl [facility] Cerebrospinal Fluid (Cerebrospinal Fluid) 05/18/2025 10:47 AM EDT 05/18/2025 12:32 PM EDT Lizette Cardenas MD BODY FLUIDS AND STOOL S ORDERABLES Final Result [address] [address] * Glucose, CSF (05/18/2025 10:47 AM EDT) CSF GLUCOSE 61 50 - 75 mg/dL [facility] Cerebrospinal Fluid (Cerebrospinal Fluid) 05/18/2025 10:47 AM EDT 05/18/2025 12:32 PM EDT Lizette Cardenas MD BODY FLUIDS AND STOOL S ORDERABLES Final Result [address] [address] * US BEDSIDE (05/18/2025 9:56 AM EDT) Anatomical Region Laterality Modality Ultrasound Narrative 05/18/2025 9:56 AM EDT Raymundo Haynes MD 05/18/2025 12:00 PM Bedside Ultrasound Date/Time: 05/18/2025 9:56 AM Performed by: Raymundo Haynes MD Authorized by: Raymundo Haynes MD Exam Type: Procedural Guidance Procedural Guidance: Indication: Procedural Guidance Bedside Ultrasound was used to perform Lumbar Puncture. Please see separately documented procedure note to see details of procedure. Accession Number: [id number] Raymundo Haynes MD IMG POINT OF CARE EXAMS Fin al Result * HIV-1/2 antigen/antibody (05/18/2025 4:09 AM EDT) HIV 1/2 AB/AG Non-Reac tive Non-Reac tive [facility] Comment: A Non-Reactive result does not rule out HIV infection, especially in the setting of acute or early infection. If indicated, based on patient's clinical and epidemiologic exposure history, the patient should have HIV RNA testing performed and repeat HIV testing in 4-8 weeks. Antiretroviral drugs taken for treatment or prophylaxis may limit the ability of diagnostic tests to detect HIV infection. Results were obtained using a 4th generation combination assay [HIV-1/2 Ag/Ab] by chemiluminescent microparticle immunoassay (CMIA). The assay detects antibodies to HIV-1/HIV-2 and/or HIV-1 antigen [P24], if present in the patient's blood. Blood 05/18/2025 4:09 AM EDT 05/18/2025 4:38 AM EDT Lluvia Marley MD LAB BLOOD ORDERABLES Final Re sult [address] [address] * Syphilis antibody screen (05/18/2025 4:09 AM EDT) Syphilis Antibody Screen Non-React edward Non-React edward [facility] Comment: INTERPRETATION: Negative for syphilis antibodies. NOTE: This specimen was screened for syphilis using a specific immunoassay for the detection of IgG and IgM Treponema pallidum antibodies. This test has replaced the Non-Treponemal RPR as the initial screening antibody test for syphilis at [facility] [place], because it is more sensitive and specific. Blood 05/18/2025 4:09 AM EDT 05/18/2025 4:39 AM EDT Lluvia Marley MD LAB BLOOD ORDERABLES Final Re sult Performing Organization Address [facility] Co de Phone Number [address] [address] * (ABNORMAL) IgG subclasses (05/18/2025 4:09 AM EDT) IGG1 375.0(L) 382.4 - 928.6 mg/dl [facility] IGG2 305.5 241.8 - 700.3 mg/dl [facility] IGG3 39.6 21.8 - 176.1 mg/dl [facility] IGG4 90.6(H) 3.9 - 86.4 mg/dl [facility] Blood 05/18/2025 4:09 AM EDT 05/18/2025 4:38 AM EDT Lluvia Marley MD LAB BLOOD ORDERABLES Final Re sult Performing Organization Address [facility] Co de Phone Number [address] [address] * PT-INR (05/18/2025 4:09 AM EDT) PT 11.2 10.0 - 13.0 sec [facility] INR 1.0 0.9 - 1.1 [facility] Blood 05/18/2025 4:09 AM EDT 05/18/2025 4:38 AM EDT Lluvia Marley MD LAB BLOOD ORDERABLES Final Re sult Performing Organization Address [facility] Co de Phone Number [address] [address] * Type and Screen (ABO,Rh,Antibody Screen) (05/18/2025 4:09 AM EDT) Expiration Date of Sample 05/21/2025 11:59 PM [facility] ABO A 05/18/2025 5:19 AM EDT [facility] Rh Positive 05/18/2025 5:19 AM EDT [facility] Comment:Additional Specimen for ABORH Needed for RBC Xmtch Resulting Agency [facility] Antibody Screen Negative 05/18/2025 5:27 AM EDT [facility] Blood 05/18/2025 4:09 AM EDT 05/18/2025 4:37 AM EDT us Lluvia Marley MD BLOOD BANK TEST ORDERABLES Fi nal Result [address] [address] * XR CHEST PA AND LATERAL 2 VIEWS (05/17/2025 6:11 PM EDT) Anatomical Region Laterality Modality Chest Computed Radiogr aphy 05/18/2025 6:20 AM EDT Impressions 05/18/2025 6:22 AM EDT No evidence of pneumonia or pulmonary edema. Narrative 05/18/2025 6:22 AM EDT XR CHEST PA AND LATERAL 2 VIEWS Referring clinician's provided indication for this examination in [facility]: Abnormal Blood Tests; Robust leukocytosis, normal exam COMPARISON: XR CHEST PA AND LATERAL 2 VIEWS ; CT ABDOMEN/PELVIS WITH CONTRAST FINDINGS: Devices/Tubes/Lines: None. Lungs: Unchanged minimal patchy opacity in the left lung base, likely atelectasis. No pulmonary edema. Pleura: No pleural effusion or pneumothorax. Heart/Mediastinum: Normal cardiomediastinal silhouette. Bones/Soft Tissues: Bony thorax and extrathoracic soft tissues are unchanged. Degenerative changes. Procedure Note Karmen Mott MD - 05/18/2025 XR CHEST PA AND LATERAL 2 VIEWS Referring clinician's provided indication for this examination in [facility]:Abnormal Blood Tests; Robust leukocytosis, normal exam COMPARISON: XR CHEST PA AND LATERAL 2 VIEWS ; CT ABDOMEN/PELVISWITH CONTRAST FINDINGS: Devices/Tubes/Lines: None. Lungs: Unchanged minimal patchy opacity in the left lung base, likelyatelectasis. No pulmonary edema. Pleura: No pleural effusion or pneumothorax. Heart/Mediastinum: Normal cardiomediastinal silhouette. Bones/Soft Tissues: Bony thorax and extrathoracic soft tissues areunchanged. Degenerative changes. IMPRESSION: No evidence of pneumonia or pulmonary edema. Lluvia Marley MD IMG XR CHEST Final Result * (ABNORMAL) Urine Sediment (05/17/2025 5:47 PM EDT) RBC 3-5(A) 0 - 2 /hpf [facility] WBC <10 <10 /hpf [facility] Comment:5 to 9 WBC's per hpf BLADDER CELLS 1+(A) None /hpf [facility] TUBULAR CELLS 1+(A) None /hpf [facility] YEAST Present(A ) None /hpf [facility] MUCUS Present(A ) None [facility] 05/17/2025 5:47 PM EDT 05/17/2025 6:03 PM EDT Lluvia Marley MD URINE ORDERABLES Final Result [facility] [address] [place] [address] * (ABNORMAL) Urinalysis w/reflex Urine Culture (05/17/2025 5:47 PM EDT) COLOR Yellow Yellow [facility] CLARITY Clear Clear [facility] GLUCOSE Negative Negative [facility] BILI Negative Negative [facility] KETONES Negative Negative [facility] SPECIFIC GRAVITY 1.013 1.001 - 1.035 [facility] BLOOD Negative Negative [facility] PH 7.0 5.0 - 9.0 [facility] Protein-UA Negative Negative [facility] UROBILINOGEN Negative Negative [facility] NITRITE Negative Negative [facility] Leukocyte esterase, ur 1+(A) Negative [facility] Urine (Urine) 05/17/2025 5:4 7 PM EDT 05/17/2025 6:03 PM EDT Lluvia Marley MD URINE ORDERABLES Final Result [facility] [address] [place] [address] * MRI FACE (ORBITS) WITH AND WITHOUT CONTRAST (05/17/2025 4:05 AM EDT) Anatomical Region Laterality Modality Face Magnetic Resonan ce 05/17/2025 5:35 AM EDT Impressions 05/17/2025 6:25 AM EDT 1. 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 This infarct may involve most anterior/inferior portions of the left-sided optic radiations. 2. A 1.1 cm extra-axial dural based enhancing mass in the anterior portion of the planum sphenoidale likely representing a meningioma. 3. Severely motion degraded MRI of the orbits. No gross abnormality identified. Narrative 05/17/2025 6:25 AM EDT MRI FACE (ORBITS) WITH AND WITHOUT CONTRAST, MRI BRAIN WITH AND WITHOUT CONTRAST Referring clinician's provided indication for this examination in Epic: Orbital Pain; * Vision loss, monocular TECHNIQUE: Multi-sequence, multi-planar MRI of the orbits was performed with and without intravenous contrast. Multi-sequence, multi-planar MRI of the brain was performed before and after intravenous contrast. COMPARISON: CT HEAD WITHOUT CONTRAST FINDINGS: Image quality on many of the sequences is severely degraded by patient motion.n MRI ORBITS: Optic Nerves and Chiasm: The evaluation is severely degraded by patient motion. No gross abnormality identified. Orbital Fat: No fat stranding. Ocular Globes: No abnormality or abnormal enhancement. There have been bilateral lens implants. Extraocular Muscles: No enlargement. Lacrimal Glands: No enlargement, inflammatory change, or mass. Pre-Orbital Soft Tissues: No fat stranding. Visualized Paranasal Sinuses: Normal. No mucosal inflammation or fluid. MRI BRAIN: Brain Parenchyma: There is a subacute to chronic infarct involving the left temporal lobe extending into the left mesial temporal lobe with associated encephalomalacic changes. This infarct may involve most inferior portions of the left-sided optic radiations. There is ex vacuo dilation of the temporal horn of the left lateral ventricle. Scattered T2/FLAIR hyperintense foci in subcortical and periventricular white matter likely represent chronic microangiopathic white matter ischemic changes in a patient this age. Prominence of ventricles and sulci likely representing age-related parenchymal volume loss. Ventricular System and Extra-Axial Spaces: The ventricles and cortical sulci are prominent, as commonly seen in patients of this age. No evidence of midline shift or hydrocephalus. There is a small extra-axial dural based enhancing mass in the anterior portion of the planum sphenoidale measuring 1.1 x 0.8 x 0.5 cm in maximum dimensions likely representing a meningioma. Extracranial Structures: Expected arterial flow signal is observed at the skull base. The paranasal sinuses are clear except for mucus retention cyst in the right maxillary sinus. The visualized temporal bone structures are normal. The mastoid air cells are clear. Procedure Note Mann Song MD, PhD - 05/17/2025 MRI FACE (ORBITS) WITH AND WITHOUT CONTRAST, MRI BRAIN WITH AND WITHOUTCONTRAST Referring clinician's provided indication for this examination in Epic:Orbital Pain; * Vision loss, monocular TECHNIQUE: Multi-sequence, multi-planar MRI of the orbits was performedwith and without intravenous contrast. Multi-sequence, multi-planar MRI of the brain was performed before andafter intravenous contrast. COMPARISON: CT HEAD WITHOUT CONTRAST FINDINGS: Image quality on many of the sequences is severely degraded by patientmotion.n MRI ORBITS: Optic Nerves and Chiasm: The evaluation is severely degraded by patientmotion. No gross abnormality identified. Orbital Fat: No fat stranding. Ocular Globes: No abnormality or abnormal enhancement. There have beenbilateral lens implants. Extraocular Muscles: No enlargement. Lacrimal Glands: No enlargement, inflammatory change, or mass. Pre-Orbital Soft Tissues: No fat stranding. Visualized Paranasal Sinuses: Normal. No mucosal inflammation or fluid. MRI BRAIN: Brain Parenchyma: There is a subacute to chronic infarct involving theleft temporal lobe extending into the left mesial temporal lobe withassociated encephalomalacic changes. This infarct may involve mostinferior portions of the left-sided optic radiations. There is ex vacuodilation of the temporal horn of the left lateral ventricle. Scattered T2/FLAIR hyperintense foci in subcortical and periventricularwhite matter likely represent chronic microangiopathic white matterischemic changes in a patient this age. Prominence of ventricles and sulci likely representing age-relatedparenchymal volume loss. Ventricular System and Extra-Axial Spaces: The ventricles and corticalsulci are prominent, as commonly seen in patients of this age. No evidenceof midline shift or hydrocephalus. There is a small extra-axial dural based enhancing mass in the anteriorportion of the planum sphenoidale measuring 1.1 x 0.8 x 0.5 cm in maximumdimensions likely representing a meningioma. Extracranial Structures: Expected arterial flow signal is observed at theskull base. The paranasal sinuses are clear except for mucus retention cyst in theright maxillary sinus. The visualized temporal bone structures are normal.The mastoid air cells are clear. IMPRESSION: 1. Subacute to chronic infarct involving the left temporal lobe extendinginto the left mesial temporal lobe with associated encephalomalacicchanges. This infarct may involve most anterior/inferior portions of theleft-sided optic radiations. 2. A 1.1 cm extra-axial dural based enhancing mass in the anteriorportion of the planum sphenoidale likely representing a meningioma. 3. Severely motion degraded MRI of the orbits. No gross abnormalityidentified. us Brisa Sinclair PA-C IM MR HEAD/NECK Final Result * MRI BRAIN WITH AND WITHOUT CONTRAST (05/17/2025 4:05 AM EDT) Anatomical Region Laterality Modality Head Magnetic Resonan ce 05/17/2025 5:35 AM EDT Impressions 05/17/2025 6:25 AM EDT 1. 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 This infarct may involve most anterior/inferior portions of the left-sided optic radiations. 2. A 1.1 cm extra-axial dural based enhancing mass in the anterior portion of the planum sphenoidale likely representing a meningioma. 3. Severely motion degraded MRI of the orbits. No gross abnormality identified. Narrative 05/17/2025 6:25 AM EDT MRI FACE (ORBITS) WITH AND WITHOUT CONTRAST, MRI BRAIN WITH AND WITHOUT CONTRAST Referring clinician's provided indication for this examination in [facility]: Orbital Pain; * Vision loss, monocular TECHNIQUE: Multi-sequence, multi-planar MRI of the orbits was performed with and without intravenous contrast. Multi-sequence, multi-planar MRI of the brain was performed before and after intravenous contrast. COMPARISON: CT HEAD WITHOUT CONTRAST FINDINGS: Image quality on many of the sequences is severely degraded by patient motion.n MRI ORBITS: Optic Nerves and Chiasm: The evaluation is severely degraded by patient motion. No gross abnormality identified. Orbital Fat: No fat stranding. Ocular Globes: No abnormality or abnormal enhancement. There have been bilateral lens implants. Extraocular Muscles: No enlargement. Lacrimal Glands: No enlargement, inflammatory change, or mass. Pre-Orbital Soft Tissues: No fat stranding. Visualized Paranasal Sinuses: Normal. No mucosal inflammation or fluid. MRI BRAIN: Brain Parenchyma: There is a subacute to chronic infarct involving the left temporal lobe extending into the left mesial temporal lobe with associated encephalomalacic changes. This infarct may involve most inferior portions of the left-sided optic radiations. There is ex vacuo dilation of the temporal horn of the left lateral ventricle. Scattered T2/FLAIR hyperintense foci in subcortical and periventricular white matter likely represent chronic microangiopathic white matter ischemic changes in a patient this age. Prominence of ventricles and sulci likely representing age-related parenchymal volume loss. Ventricular System and Extra-Axial Spaces: The ventricles and cortical sulci are prominent, as commonly seen in patients of this age. No evidence of midline shift or hydrocephalus. There is a small extra-axial dural based enhancing mass in the anterior portion of the planum sphenoidale measuring 1.1 x 0.8 x 0.5 cm in maximum dimensions likely representing a meningioma. Extracranial Structures: Expected arterial flow signal is observed at the skull base. The paranasal sinuses are clear except for mucus retention cyst in the right maxillary sinus. The visualized temporal bone structures are normal. The mastoid air cells are clear. Procedure Note Mann Song MD, PhD - 05/17/2025 MRI FACE (ORBITS) WITH AND WITHOUT CONTRAST, MRI BRAIN WITH AND WITHOUTCONTRAST Referring clinician's provided indication for this examination in [facility]:Orbital Pain; * Vision loss, monocular TECHNIQUE: Multi-sequence, multi-planar MRI of the orbits was performedwith and without intravenous contrast. Multi-sequence, multi-planar MRI of the brain was performed before andafter intravenous contrast. COMPARISON: CT HEAD WITHOUT CONTRAST FINDINGS: Image quality on many of the sequences is severely degraded by patientmotion.n MRI ORBITS: Optic Nerves and Chiasm: The evaluation is severely degraded by patientmotion. No gross abnormality identified. Orbital Fat: No fat stranding. Ocular Globes: No abnormality or abnormal enhancement. There have beenbilateral lens implants. Extraocular Muscles: No enlargement. Lacrimal Glands: No enlargement, inflammatory change, or mass. Pre-Orbital Soft Tissues: No fat stranding. Visualized Paranasal Sinuses: Normal. No mucosal inflammation or fluid. MRI BRAIN: Brain Parenchyma: There is a subacute to chronic infarct involving theleft temporal lobe extending into the left mesial temporal lobe withassociated encephalomalacic changes. This infarct may involve mostinferior portions of the left-sided optic radiations. There is ex vacuodilation of the temporal horn of the left lateral ventricle. Scattered T2/FLAIR hyperintense foci in subcortical and periventricularwhite matter likely represent chronic microangiopathic white matterischemic changes in a patient this age. Prominence of ventricles and sulci likely representing age-relatedparenchymal volume loss. Ventricular System and Extra-Axial Spaces: The ventricles and corticalsulci are prominent, as commonly seen in patients of this age. No evidenceof midline shift or hydrocephalus. There is a small extra-axial dural based enhancing mass in the anteriorportion of the planum sphenoidale measuring 1.1 x 0.8 x 0.5 cm in maximumdimensions likely representing a meningioma. Extracranial Structures: Expected arterial flow signal is observed at theskull base. The paranasal sinuses are clear except for mucus retention cyst in theright maxillary sinus. The visualized temporal bone structures are normal.The mastoid air cells are clear. IMPRESSION: 1. Subacute to chronic infarct involving the left temporal lobe extendinginto the left mesial temporal lobe with associated encephalomalacicchanges. This infarct may involve most anterior/inferior portions of theleft-sided optic radiations. 2. A 1.1 cm extra-axial dural based enhancing mass in the anteriorportion of the planum sphenoidale likely representing a meningioma. 3. Severely motion degraded MRI of the orbits. No gross abnormalityidentified. Result [facility] Brisa Sinclair PA-C IMG MR HEAD/NECK Final Result * Blood Culture, Routine (05/16/2025 10:51 PM EDT) Only the most recent of2 resultswithin the time period is included. Special Requests No Special Requests 05/16/2025 10:51 PM EDT [facility] BLOOD CULTURE NO GROWTH 7 DAYS 05/23/2025 1:21 PM EDT [facility] Blood (Blood) 05/16/2025 10: 51 PM EDT 05/16/2025 11:34 PM EDT Result [facility] Brisa Sinclair PA-C MICROBIOLOGY - GENERAL ORDERA BLES Final Result Performing Organization Address [facility] Co de Phone Number [address] [address] * C-Reactive Protein (05/16/2025 10:51 PM EDT) C REACTIVE PROTEIN 1.1 <8.0 mg/L [facility] Comment:This reference range is for the evaluation of inflammation. Order High Sensitivity CRP for cardiac risk status evaluation. Blood 05/16/2025 10:5 1 PM EDT 05/16/2025 11:13 PM EDT Result [facility] Brisa Sinclair PA-C LAB BLOOD ORDERABLES Final Re sult Performing Organization Address [facility] Co de Phone Number [address] [address] * Intravitreal Injection, Pharmacologic Agent - OS - Left Eye (05/16/2025 7:56 PM EDT) Other Narrative Kang Merlos MD - 05/16/2025 7:56 PM EDT Table formatting from the original result was not included. Injection Information Timeout performed: Yes. Anesthetic Medication: Proparacaine 0.5%. Injection Medication: 2,400 mcg foscarnet 2400 mcg/0.1 mL Route: Intravitreal, Site: Left Eye ND: [id number], Lot: [id number], Expiration date: 05/17/2025, Waste: 0.4 mL Notes Vitreoretinal Procedure Note Date: 05/16/2025 Pre op Diagnosis: 1. Acute retinal necrosis OS Post-op diagnosis: same Provider: Kang Merlos MD Procedure: 1. Tap and culture of Anterior Chamber OS 2. Intravitreal Injection OS Foscarnet Anesthesia: 1. Topical 0.5% Proparacaine 2. Subconjunctival 2% Lidocaine Complications: None Procedure: After the risks, benefits, alternatives and techniques were discussed with the patient, all questions were answered and informed consent was signed. Proparacaine was instilled onto the ocular surface followed by 4% topical lidocaine on cotton tip then by subconjunctival 2% lidocaine. The eye was prepped in the usual fashion for this procedure. Once analgesia was achieved a lid speculum was placed. A 30g needle was used to passively remove 0.2cc of acqueous from the anterior chamber. Calipers were used to kika 3.5 mm posterior to the limbus in the inferotemporal quadrant. A drop of povidone was placed on the surface. Another 30g needle was used to inject Foscarnet 2400mcg / 0.1cc intravitreally. Speculum was removed and additional moxifloxacin was applied. All aspirated eye samples were sent to microbiology Vision was HM and the optic nerve perfused. The patient tolerated the procedure well and there were no complications. ? RD precautions reviewed.?? ? Patient was discharged home in stable condition, they will follow up tomorrow in clinic Cole Merlos MD Vitreoretinal Surgical Fellow us Kang Merlos MD OPHTHALMOLOGY P ROCEDURES Final Result * Toxoplasma PCR, Tissue, Fluid (05/16/2025 7:45 PM EDT) Toxoplasma PCR Final Report [facility] Comment: Results Viewable in Attached Link: PERFORMED AT [facility] LAB MEDICINE [address] [place] [address] (NOTE) 05/16/2025 7:45 PM EDT 05/16/2025 9:09 PM EDT Kang Merlos MD NON CULTURE VITOR ROBIOLOGY Final Result Performing Organization Address [facility] Co de Phone Number [address] [address] * Viral panel, eye fluid (05/16/2025 7:45 PM EDT) FLUID EYE VIRAL PNL Final Report [facility] Comment: Results Viewable in Attached Link: PERFORMED AT [facility] LAB MEDICINE [address] [place] [address] (NOTE) 05/16/2025 7:45 PM EDT 05/16/2025 9:09 PM EDT Kang Merlos MD BODY FLUIDS AND STOOLS ORDERABLES Final Result Performing Organization Address [facility] Co de Phone Number [address] [address] * Fundus Photos - OU - Both Eyes (05/16/2025 7:18 PM EDT) Anatomical Region Laterality Modality Head Photography Narrative 05/16/2025 8:38 PM EDT OD: normal OS: DBH in all 4 quadrants, retinal whitening in mid-periphery, vascular sheathing, retinal hemorrhages Marquez Mcgraw MD OPHTHALMOLOGY IMAGING Edite d Result - Final * Sedimentation rate (ESR) (05/16/2025 5:53 PM EDT) ESR 9 0 - 19 mm/h [facility] Blood 05/16/2025 5:53 PM EDT 05/16/2025 6:37 PM EDT Chilango Huddleston MD LAB BLOOD ORDERABLES Final Result Performing Organization Address [facility] Co de Phone Number [address] [address] from Last 3 Months Insurance MEDICARE PART A & B [employer] MEDEX SUPPLEMENT [facility] MEDICARE PART A & B [employer] MEDEX SUPPLEMENT [facility] MEDICARE PART A & B [employer] MEDEX SUPPLEMENT MEDICARE PART A & B [employer] MEDEX SUPPLEMENT MEDICARE PART A & B [employer] MEDEX [place] [address] [place] [address] MEDICARE PART A & B [employer] MEDEX SUPPLEMENT MEDICARE PART A & B [employer] MEDEX SUPPLEMENT [facility] MEDICARE PART A & B [employer] MEDEX SUPPLEMENT [place] MEDICARE PART A & B [employer]OSS MEDEX SUPPLEMENT [place] Advance Directives For more information, please contact: [phone] (9AM - 5PM [facility], Tuesday-Tuesday) Documents on File Type Date Recorded Patient Child Welfare Specialist Beatriz warner MOLST 05/23/2025 10:16 AM Living Will 10/21/2023 3:53 PM Healthcare Proxy 10/21/2023 3:52 PM W/ [place] ING WILL * DNR/DNI (No CPR/No Intubation) (Latest Code Status on File) Date Activated Date Inactivated Comments 05/17/2025 3:04 PM Question Answer Comments Code Status Confirmed With: PatientSurrogate * Full Code Date Activated Date Inactivated Comments 02/24/2022 7:14 PM 05/17/2025 3:04 PM Question Answer Comments Code Status Confirmed With: Patient * Full Code Date Activated Date Inactivated Comments 02/24/2022 3:16 PM 02/24/2022 7:14 PM Question Answer Comments Code Status Confirmed With: Patient Care Teams Court Of Appeals Judge Relationship Specialty Start Date End Date Eusebio Chase MD [address] [place] [address] PCP - General Family Medicine 11/30/24 Eusebio Chase MD [address] [place] [address] PCP - Hospice Attending 05/23/25 Sandra Tee MD [address] [place] [address] Orthopedics & Sports Medicine, [facility] [place] [address] Historical LMR Provider 08/30/17 Additional Source Comments The information contained in this document represents components of the legal health record. It is not the complete legal health record.[facility]
--- OUTSIDE RECORDS SUMMARY | 2025-08-06 16:47 | XMS_ITS | Encounter Summary ---
Author Organization [facility] Address [address] [place] [address] Phone Care Team Providers Care Leather Sprayer Name Role Phone Sandra Tee MD Unavailable [phone] Eusebio Chase MD Primary Care Provider [phone] Eusebio Chase MD Unavailable [phone] Encounter Details Date Type Department Care Team (Late st Contact Info) Description 05/17/2025 Ophth Exam [facility] [address] [facility] 12th [place] [address] Kang Merlos MD [address] [place] [address] [email or web address] Social History Tobacco Use Types Packs/Day Years [...] 7:00 AM EDT Leslie Gabriel RN * [place] Suicide Severity Rating Scale (Screener/Recent Self-Report) Question [...] on filedocumented in this encounter Care Teams Leather Sprayer Relationship Specialty Start Date End Date Eusebio Chase MD [address] [place] [address] PCP - General Family Medicine 11/30/24 Eusebio Chase MD [address] [place] [address] PCP - Hospice Attending 05/23/25 Sandra Tee MD [address] [place] [address] Orthopedics & Sports Medicine, [place] [address] [email or web address] Historical LMR Provider 08/30/17 documented as of this encounter Additional Source Comments The information contained in this document represents components of the legal health record. It is not the complete legal health record.[facility]
--- OUTSIDE RECORDS SUMMARY | 2025-08-06 16:47 | XMS_ITS | Encounter Summary ---
Author Organization [facility] Address [address] [place] [address] Phone Care Team Providers Care Printer Operator Name Role Phone Kartik Yanez MD Unavailable [phone] Bertram [place] MD Unavailable [phone] Sandra Tee MD Unavailable [phone] Mehdi Sierra MD Primary Care Provider [phone] Eusebio Chase MD Primary Care Provider [phone] Eusebio Chase MD Primary Care Provider [phone] Eusebio Chase MD Unavailable [phone] Encounter Details Date Type Department Care Team (Late st Contact Info) Description 01/17/2020 Procedure Pass [facility] Admitting Dept [facility] Department [address] [place] [address] Social History Tobacco Use Types Packs/Day Years Used Date Smoking Tobacco: Never Smokeless Tobacco: Never Alcohol Use Standard Drinks/Week Comments Yes 0 (1 standard drink = 0.6 oz pur e alcohol) rare Sex and Gender Information Value Date Recorded [...] documented as of this encounter Care Teams Printer Operator Relationship Specialty Start Date End Date Mehdi Sierra MD [address] [place] [address] [facility], [place] [address] [email or web address] PCP - General Family Medicine 06/08/18 07/18/23 Eusebio Chase MD [address] [place] [address] [email or web address] PCP - General Family Medicine 07/19/23 11/29/24 Eusebio Chase MD [address] [place] [address] [email or web address] PCP - General Family Medicine 11/30/24 Eusebio Chase MD [address] [place] [address] [email or web address] PCP - Hospice Attending 05/23/25 Kartik Yanez MD [address] [facility], 2nd [place] [address] [email or web address] Historical LMR Provider 08/30/17 11/21/21 Bertram [place] MD [address] [place] [address] [email or web address] Historical LMR Provider 08/30/17 2 Sandra Tee MD [address] [place] [address] [facility] [place] [address] [email or web address] Historical LMR Provider 08/30/17 documented as of this encounter Additional Source Comments The information contained in this document represents components of the legal health record. It is not the complete legal health record.[facility]
--- OUTSIDE RECORDS SUMMARY | 2025-08-06 16:47 | XMS_ITS | Encounter Summary ---
Author Organization [facility] Address [email or web address] [facility] [address] [place] [address] Phone Care Team Providers Care Purchasing Engineer Name Role Phone Kartik Yanez MD Unavailable [phone] Bertram [place] MD Unavailable [phone] Sandra Tee MD Unavailable [phone] Mehdi Sierra MD Primary Care Provider [phone] Eusebio Chase MD Primary Care Provider [phone] Eusebio Chase MD Primary Care Provider [phone] Eusebio Chase MD Unavailable [phone] Encounter Details Date Type Department Care Team (Late st Contact Info) Description 05/11/2019 Procedure Pass [place] Admitting Dept - [facility] Department [address] [place] [address] Social History Tobacco Use Types Packs/Day [...] documented as of this encounter Care Teams Purchasing Engineer Relationship Specialty Start Date End Date Mehdi Sierra MD [address] [place] [address] Orthopedics [place], [place] [phone] [email or web address] PCP - General Family Medicine 06/08/18 07/18/23 Eusebio Chase MD [address] [place] [address] [facility] [place] [address] [email or web address] PCP - General Family Medicine 07/19/23 11/29/24 Eusebio Chase MD [address] [place] [address] [email or web address] PCP - General Family Medicine 11/30/24 Eusebio Chase MD [address] [place] [address] [email or web address] PCP - Hospice Attending 05/23/25 Kartik Yanez MD [address] [place] [address], 2nd [place] [address] [email or web address] Historical LMR Provider 08/30/17 11/21/21 Bertram [place] MD [address] [place] [address] [email or web address] Historical LMR Provider 08/30/17 2 Sandra Tee MD [address] [place] [address] [facility] [place] [address] Historical LMR Provider 08/30/17 documented as of this encounter Additional Source Comments The information contained in this document represents components of the legal health record. It is not the complete legal health record.[facility]
--- OUTSIDE RECORDS SUMMARY | 2025-08-06 16:47 | XMS_ITS | Encounter Summary ---
Author Organization [facility] Address [address] [place] [address] Phone Care Team Providers Care Acting Manager Name Role Phone Sandra Tee MD Unavailable Eusebio Chase MD Primary Care Provider Eusebio Chase MD Unavailable [phone] Encounter Details Date Type Department Care Team (Late st Contact Info) Description 05/18/2025 Procedure Pass [facility], Elie [address] [facility], 2nd Floor, [address] [place] [address] Social History Tobacco Use Types Packs/Day Years [...] 7:00 AM EDT Leslie Gabriel RN * [place] Suicide Severity Rating Scale (Screener/Recent Self-Report) Question [...] on filedocumented in this encounter Care Teams Acting Manager Relationship Specialty Start Date End Date Eusebio Chase MD [address] [place] [address] PCP - General Family Medicine 11/30/24 Eusebio Chase MD [address] [place] [address] PCP - Hospice Attending 05/23/25 Sandra Tee MD [address] [place] [address] Orthopedics & Sports Medicine, [facility] [place] [address] Historical LMR Provider 08/30/17 documented as of this encounter Additional Source Comments The information contained in this document represents components of the legal health record. It is not the complete legal health record.[facility]
--- OUTSIDE RECORDS SUMMARY | 2025-08-06 16:48 | XMS_ITS | Encounter Summary ---
Author Organization [facility] Address [address] [facility] [address] [place] [address] Phone Care Team Providers Care Program Specialist Name Role Phone Sandra Tee MD Unavailable [phone] Eusebio Chase MD Primary Care Provider [phone] Eusebio Chase MD Unavailable [phone] Encounter Details Date Type Department Care Team (Late st Contact Info) Description 05/16/2025 Ophth Exam [facility] Department [address] [place] [address] Soledad Vyas MD [address] [place] [address] [email or web address] Social History Tobacco Use Types Packs/Day Years [...] 7:00 AM EDT Leslie Gabriel RN * [place] Suicide Severity Rating Scale (Screener/Recent Self-Report) Question [...] on filedocumented in this encounter Care Teams Program Specialist Relationship Specialty Start Date End Date Eusebio Chase MD [address] [place] [address] PCP - General Family Medicine 11/30/24 Eusebio Chase MD [address] [place] [address] PCP - Hospice Attending 05/23/25 Sandra Tee MD [address] [facility] Orthopedics & Sports Medicine, [place] [address] [email or web address] Historical LMR Provider 08/30/17 documented as of this encounter Additional Source Comments The information contained in this document represents components of the legal health record. It is not the complete legal health record.[facility]
--- OUTSIDE RECORDS SUMMARY | 2025-08-06 16:48 | XMS_ITS | Encounter Summary ---
Author Organization [facility] Address [address] [place] [address] Phone Care Team Providers Care Project Management Consultant Name Role Phone Sandra Tee MD Unavailable [phone] Eusebio Chase MD Primary Care Provider [phone] Eusebio Chase MD Unavailable [phone] Encounter Details Date Type Department Care Team (Late st Contact Info) Description 12/13/2024 Procedure Pass [facility], Ct Scan - [facility] [address] [place] [address] Social History Tobacco Use Types Packs/Day Years [...] as food, clothing, or medical care? No 12/13/2024 In the past 12 months have y ou been in a relationship with a person who hurts, threatens, or tries to control you? No 12/13/2024 Are you denied basic needs s uch as food, clothing, or medical care? No 12/13/2024 In the past 12 months have y ou been in a relationship with a person who hurts, threatens, or tries to control you? No 12/13/2024 Sex and Gender Information Value Date Recorded Sex Assigned at Male 08/14/2019 12:02 PM EDT Legal Sex Male 10:05 PM EDT Gender Identity Male 08/14/2019 12:02 PM EDT Sexual Orientation Straight 08/14/2019 12 :02 PM EDT documented as of this encounter Functional Status * Calculated C-SSRS Risk Score (Lifetime/Recent) Answer Date of Assessment Author No Risk Indicated 12/13/2024 6:52 PM EST Ambika Gloria RN * [place] Suicide Severity Rating Scale (Screener/Recent Self-Report) Question Answer Date of Assessment Author 1. Wish to be (Past 1 Month) No 12/13/2024 6:52 PM Mariza Hughes RN 2. Non-Specific Active Suicidal Thoughts (Past 1 Month) No 12/13/2024 6:52 PM Mariza Hughes RN 6. Suicidal Behavior (Lifetime) No 12/13/2024 6:52 PM Mariza Hughes RN documented as of this encounter Plan of Treatment Not on file documented as of this encounter Visit Diagnoses Not on filedocumented in this encounter Additional Health Concerns Infection Onset Date Last Indicated Resolved Time CoV-Risk 12/13/2024 12/13/2024 12/24/2024 1:23 AM EST documented as of this encounter Care Teams Project Management Consultant Relationship Specialty Start Date End Date Eusebio Chase MD [address] [place] [address] PCP - General Family Medicine 11/30/24 Eusebio Chase MD [address] [place] [address] PCP - Hospice Attending 05/23/25 Sandra Tee MD [address] [place] [address] Orthopedics & Sports Medicine, [facility] [place] [address] [email or web address] Historical LMR Provider 08/30/17 documented as of this encounter Additional Source Comments The information contained in this document represents components of the legal health record. It is not the complete legal health record.[facility]
--- OUTSIDE RECORDS SUMMARY | 2025-08-06 16:48 | XMS_ITS | Encounter Summary ---
Author Organization [facility] Address [address] [place] [address] Phone Care Team Providers Care Outboard Motor Assembler Name Role Phone Sandra Tee MD Unavailable [phone] Eusebio Chase MD Primary Care Provider [phone] Eusebio Chase MD Unavailable [phone] Encounter Details Date Type Department Care Team (Late st Contact Info) Description 12/13/2024 Procedure Pass [facility], Ct Scan - [facility] [address] [place] [address] Social History Tobacco Use Types Packs/Day Years [...] 6:52 PM EST Ambika Gloria RN * [place] Suicide Severity Rating Scale (Screener/Recent Self-Report) Question [...] documented as of this encounter Care Teams Outboard Motor Assembler Relationship Specialty Start Date End Date Eusebio Chase MD [address] [place] [address] PCP - General Family Medicine 11/30/24 Eusebio Chase MD [address] [place] [address] PCP - Hospice Attending 05/23/25 Sandra Tee MD [address] [place] [address] Orthopedics & Sports Medicine, [facility] [place] [address] [email or web address] Historical LMR Provider 08/30/17 documented as of this encounter Additional Source Comments The information contained in this document represents components of the legal health record. It is not the complete legal health record.[facility]
--- OUTSIDE RECORDS SUMMARY | 2025-08-06 16:48 | XMS_ITS | Encounter Summary ---
Author Organization [facility] Address [address] [place] [address] Phone Care Team Providers Care Trade Mark Attorney Name Role Phone Sandra Tee MD Unavailable [phone] Eusebio Chase MD Primary Care Provider [phone] Eusebio Chase MD Primary Care Provider [phone] Eusebio Chase MD Unavailable [phone] Encounter Details Date Type Department Care Team (Late st Contact Info) Description 10/03/2023 Prep for Surgery [facility] Orthopedics & Sports Medicine [address] [place] [address] [phone] Sandra Tee MD [address] [place] [address] Orthopedics & Sports Medicine, [facility] [place], [place] [phone] Social History Tobacco Use Types Packs/Day Years Used Date Smoking Tobacco: Never Smokeless Tobacco: Never Alcohol Use Standard Drinks/Week Comments Yes 0 (1 standard drink = 0.6 oz pur e alcohol) rare 1 beer a month at most Education Answer Date Recorded Are you interested in more education? Not on angela e 03/11/2023 Are you concerned about learning? Not on file 03/11/2023 No 03/11/2023 No 03/11/2023 Digital Access Answer Date Recorded No 04/11/2023 No 04/11/2023 Reliable internet access at home? Not on file 04/11/2023 Device with a working camera? Not on file Sex and Gender Information Value Date Recorded [...] documented as of this encounter Care Teams Trade Mark Attorney Relationship Specialty Start Date End Date Eusebio Chase MD [address] [place] [address] Orthopedics Sports [facility], [place] [address] PCP - General Family Medicine 07/19/23 11/29/24 Eusebio Chase MD [address] [place] [address] PCP - General Family Medicine 11/30/24 Eusebio Chase MD [address] [place] [address] PCP - Hospice Attending 05/23/25 Sandra Tee MD [address] [place] [address] Orthopedics Sports [facility], [place] [address] Historical LMR Provider 08/30/17 documented as of this encounter Additional Source Comments The information contained in this document represents components of the legal health record. It is not the complete legal health record.[facility]
--- OUTSIDE RECORDS SUMMARY | 2025-08-06 16:48 | XMS_ITS | Encounter Summary ---
Author Organization [facility] Address [address] [place] [address] Phone Care Team Providers Care Wool Hat Flanger Name Role Phone Sandra Tee MD Unavailable [phone] Eusebio Chase MD Primary Care Provider [phone] Eusebio Chase MD Primary Care Provider [phone] Eusebio Chase MD Unavailable [phone] Encounter Details Date Type Department Care Team (Late st Contact Info) Description 10/19/2023 Procedure Pass [place] Admitting Dept - Virtual Department [address] [place] [address] Social History Tobacco Use Types Packs/Day Years [...] documented as of this encounter Care Teams Wool Hat Flanger Relationship Specialty Start Date End Date Eusebio Chase MD [address] [place] [address] Orthopedics Sports [facility], [place] [address] [email or web address] PCP - General Family Medicine 07/19/23 11/29/24 Eusebio Chase MD [address] [place] [address] [email or web address] PCP - General Family Medicine 11/30/24 Eusebio Chase MD [address] [place] [address] PCP - Hospice Attending 05/23/25 Sandra Tee MD [address] [place] [address], [place] [address] Historical LMR Provider 08/30/17 documented as of this encounter Additional Source Comments The information contained in this document represents components of the legal health record. It is not the complete legal health record.[facility]
== END 2025-08-06 14:23 | disposition home or self-care (01) ==
PROVIDERS: PCP Family Medicine; Visit Provider Physician Assistant Medical
DX: H61.23 Impacted cerumen, bilateral (principal)

== ENCOUNTER → 2025-08-06 13:38 | Outpatient (BNVA) | payer MEDICAID, SELFPAY | PROVIDERS: PCP Family Medicine; Visit Provider Physician Assistant Medical | DX: H61.23 Impacted cerumen, bilateral (principal) | CPT/HCPCS: 69210; 99212 ==

== ENCOUNTER 2025-08-29 14:47 | Outpatient (AMB) | payer MEDICARE, MEDICAID, SELFPAY ==
--- NOTE | 2025-08-29 14:57 | MHC.OFFWIV ---
Intake Vital Signs 08/29/25 14:58 Height 5 ft 8 in Weight 194 lb BMI 29.5 BP 122/76 Blood Pressure Location Lt brachial Position Sitting Pulse 74 Pulse Source Pulse Oximeter Temp 98.1 F Temp Source Oral Pulse Oximetry (%) 97 Oxygen Delivery Method Room Air Intake Visit Reasons: ep bump on bridge of nose Intake Note: Patient presents for a rough lesion on the bridge of his nose x2 months Allergies No Known Allergies Allergy (Verified 08/29/25 15:03) Do you need a note to return to daycare/school/sports/work: No HPI HPI Comments History of Present Illness Details 74 y/o Male patient who presents to the walk in clinic with c/o small bump on the bridge of his Nose. He noticed the area approximately 2 months ago. Describes the area as Bumpy , rough, dry and peeling off. Denies any pain, or bleeding. Denies h/o Skin CA or lesions. He has been trying to rub the area with soap and water with no relief. [facility] Medical History (Updated 08/29/25 @ 16:48 by Hellen Kline NP) Skin lesion Review of Systems Const All systems reviewed & are unremarkable except as noted in HPI and below Physical Exam Vital Signs: Last Vital Signs Temp 98.1 F 08/29/25 14:58 Pulse 74 08/29/25 14:58 BP 122/76 08/29/25 14:58 Pulse Ox 97 08/29/25 14:58 Oxygen Delivery Method Room Air 08/29/25 14:58 BMI result Body Mass Index 29.5 Const General: no acute distress Nutritional Appearance: well nourished Orientation/consciousness: patient oriented x3 HEENT Head: Yes normocephalic General nose exam: Abnormal external nose present nasal abrasion (nose bridge dry); Negative for nasal tenderness and nasal swelling Face and sinus: Yes sinuses nontender Face images:  1. Skin lesion Dry peeling skin with rough boarders. Neuro General: patient oriented x3, gait normal and moves all extremities Psych Affect: Anxious affect present Attitude: cooperative Thought process: Flight of ideas present and Loose association thought process present Assessment & Plan Assessment & Plan (1) Skin lesion: Code(s): L98.9 - Disorder of the skin and subcutaneous tissue, unspecified Plan: DDx's: Eczema vs Dermatitis vs Skin Cancer. Advised Pt to f/u with Dermatology for Skin Bx to r/o Cancer. Provided Patient with contact information on different dermatology Offices - he is to call and self schedule. Coding Level of Care Code New Pt Level 4 (44856) Diagnoses Skin lesion L98.9 Time Spent (min) 20
[2025-08-29 14:58] VITALS: BP 122/76; PULSE 74; TEMP 36.7; O2SAT 97; BMI 29.5
== END 2025-08-29 15:53 | disposition home or self-care (01) ==
PROVIDERS: PCP Family Medicine; Visit Provider Nurse Practitioner Family
DX: L98.9 Disorder of the skin and subcutaneous tissue, unspecified (principal)

== ENCOUNTER → 2025-08-29 14:47 | Outpatient (BNVA) | payer MEDICARE, MEDICAID, SELFPAY | PROVIDERS: PCP Family Medicine; Visit Provider Nurse Practitioner Family | DX: L98.9 Disorder of the skin and subcutaneous tissue, unspecified (principal) | CPT/HCPCS: 99202 ==